=== PATIENT | female | born 1940 | race Caucasian/White ===

== ENCOUNTER 2016-06-08 10:51 | Outpatient (CLI) | payer MEDICARE ==
[~2016-06-08] VITALS: Ht 167.6 cm; Wt 88.2 kg
[~2016-06-08 10:51] MED LIST: ACET500C PO; ALBU17IN2 INH; AMLO5TAB2 PO; ASPI1TAB PO; ASPI325T PO; ATIV1TAB10 PO; ATOR1TAB18 PO; B12-1CHW PO; CALC25TA PO; CIPR-250 PO; COLA100C PO; COMBAER6 INH; DULC10SU2 PR; FERG1TAB PO; FLEEENE4 PR; HYDR-3713 PO; HYDR10TAB PO; IRBE150T12 PO; LATA5OPD OU; LEVO137T2 PO; LEVO150T7 PO; LEVO2TA PO; LIPI20TA PO; LOVE1INJ2 SC; MAG-TAB2 PO; MECL25CH PO; META28.35 PO; MILKSUS PO; PLAV75TA38 PO; PROC30TA PO; PROTPAK PO; RECL5INJ2 IV; REFR0.5D8 OU; SENN8.6C PO; SERT50TA PO; SUCR1TA PO; THERTAB30 PO; VITA100066 PO; VITA200038 PO; VITA250L PO; VITA500C10 PO; VITA500T53 PO; WARF4TAB51 PO; XALA0.002 OU; ZOFR20TA PO; antivert PO
[2016-06-08] MEDS ORDERED: ZOLEDRONIC ACID 5 MG in APPROPRIATE DILUENT 1 EA IV ONE (11:15)
[2016-06-08] MEDS ORDERED: SERT-138 PO (11:24)
[2016-06-08] MEDS ORDERED: WARF-23 PO (11:24)
== END 2016-06-08 11:50 | disposition home or self-care (01) ==
LOC: M INFU 10:51
PROVIDERS: ATTEND Family Medicine
DX: M81.0 Age-related osteoporosis without current pathological fracture (principal); Z78.0 Asymptomatic menopausal state; I69.354 Hemiplegia and hemiparesis following cerebral infarction affecting left non-dominant side; K30 Functional dyspepsia; M19.90 Unspecified osteoarthritis, unspecified site; Z87.891 Personal history of nicotine dependence; Z88.0 Allergy status to penicillin; Z88.1 Allergy status to other antibiotic agents; Z79.82 Long term (current) use of aspirin; Z79.01 Long term (current) use of anticoagulants; Z79.899 Other long term (current) drug therapy
CPT/HCPCS: 96365; J3489

== ENCOUNTER → 2016-06-17 | Outpatient (REF) | payer MEDICARE ==
[~2016-06-17] MED LIST changes: +SERT-138 PO; +WARF-23 PO
[2016-06-17 12:32] LABS: INR 2.35
[2016-06-17 13:08] LABS: ALBUMIN 3.6 GM/DL (3.2-5.2); ALBUMIN/GLOBULIN RATIO 0.9 (1.00-1.93); BILIRUBIN,TOTAL 0.5 MG/DL (0.2-1.0); CALCIUM LEVEL 9.2 MG/DL (8.8-10.2); CREATININE FOR GFR 1.04 MG/DL (0.55-1.02); FREE T4 1.17 NG/DL (0.76-1.46); GLOMERULAR FILTRATION RATE 55.1 (>39); PERCENT SATURATION 18.1 % (13.2-37.4); POTASSIUM SERUM 4.1 MEQ/L (3.5-5.1); TOTAL PROTEIN 7.6 GM/DL (6.4-8.2)
[2016-06-17 15:43] LABS: BASO # 0.1 K/mm3 (0.0-0.2); BASO % 1.1 % (0.0-1.0); EOS # 0.1 K/mm3 (0.0-0.50); EOS % 1.9 % (0.0-3.0); LARGE UNSTAINED CELL # 0.1 K/mm3 (0.0-0.4); LYMPH # 0.9 K/mm3 (1.5-4.5); LYMPH % 16.7 % (24.0-44.0); MEAN CORPUSCULAR HEMOGLOBIN 30.5 pg (27.0-33.0); MEAN CORPUSCULAR HGB CONC 31.6 g/dl (32.0-36.5); MEAN CORPUSCULAR VOLUME 96.3 fl (80.0-96.0); MONO # 0.3 K/mm3 (0.0-0.8); MONO % 6.5 % (0.0-5.0); NEUTROPHILS # 3.7 K/mm3 (1.8-7.7); NEUTROPHILS % 71.7 % (36.0-66.0); PLATELET COUNT, AUTOMATED 267 k/mm3 (150-450); RED CELL DISTRIBUTION WIDTH 13.9 % (11.5-14.5); WHITE BLOOD COUNT 5.2 K/mm3 (4.0-10.0)
== END ==
LOC: M SFHCPLAZ 09:24
PROVIDERS: ATTEND Family Medicine
DX: D50.9 Iron deficiency anemia, unspecified (principal); E55.9 Vitamin D deficiency, unspecified; E03.9 Hypothyroidism, unspecified; R73.01 Impaired fasting glucose

== ENCOUNTER → 2016-07-01 | Outpatient (REF) | payer MEDICARE ==
[~2016-07-01] MED LIST changes: -COLA100C PO; +COLA100C3 PO
[2016-07-01 18:38] LABS: INR 2.66
[2016-07-01 18:54] LABS: MEAN CORPUSCULAR HGB CONC 29.9 g/dl (32.0-36.5); RED CELL DISTRIBUTION WIDTH 14.3 % (11.5-14.5); WHITE BLOOD COUNT 5.5 K/mm3 (4.0-10.0)
== END ==
LOC: M LABDRAW1 16:55
PROVIDERS: ATTEND Physician Assistant Medical
DX: Z51.81 Encounter for therapeutic drug level monitoring (principal); Z79.01 Long term (current) use of anticoagulants; D50.9 Iron deficiency anemia, unspecified
CPT/HCPCS: 85027; 85610; 85730; G0463

== ENCOUNTER → 2016-08-18 | Outpatient (REF) | payer MEDICARE ==
[2016-08-18 12:17] LABS: BASO % 1.2 % (0.0-1.0); EOS # 0.1 K/mm3 (0.0-0.50); EOS % 3.3 % (0.0-3.0); LARGE UNSTAINED CELL # 0.1 K/mm3 (0.0-0.4); MEAN CORPUSCULAR HEMOGLOBIN 31.1 pg (27.0-33.0); MEAN CORPUSCULAR HGB CONC 32.2 g/dl (32.0-36.5); MEAN CORPUSCULAR VOLUME 96.4 fl (80.0-96.0); MONO # 0.3 K/mm3 (0.0-0.8); MONO % 7.3 % (0.0-5.0); NEUTROPHILS # 2.9 K/mm3 (1.8-7.7); NEUTROPHILS % 66.2 % (36.0-66.0); PLATELET COUNT, AUTOMATED 225 k/mm3 (150-450); RED CELL DISTRIBUTION WIDTH 14.8 % (11.5-14.5); WHITE BLOOD COUNT 4.4 K/mm3 (4.0-10.0)
[2016-08-18 12:55] LABS: FREE T4 1.25 NG/DL (0.76-1.46)
== END ==
LOC: M SFHCPLAZ 10:28
PROVIDERS: ATTEND Family Medicine
DX: R73.01 Impaired fasting glucose (principal); E03.9 Hypothyroidism, unspecified; D50.9 Iron deficiency anemia, unspecified

== ENCOUNTER → 2016-08-27 | Outpatient (REF) | payer MEDICARE ==
[2016-08-27 13:03] LABS: BASO # 0.1 K/mm3 (0.0-0.2); BASO % 1.6 % (0.0-1.0); EOS # 0.1 K/mm3 (0.0-0.50); EOS % 3.2 % (0.0-3.0); LARGE UNSTAINED CELL # 0.1 K/mm3 (0.0-0.4); LARGE UNSTAINED CELL % 1.6 % (0.0-4.0); LYMPH # 1.2 K/mm3 (1.5-4.5); LYMPH % 24.9 % (24.0-44.0); MEAN CORPUSCULAR HEMOGLOBIN 30.8 pg (27.0-33.0); MEAN CORPUSCULAR HGB CONC 31.5 g/dl (32.0-36.5); MEAN CORPUSCULAR VOLUME 97.7 fl (80.0-96.0); MONO # 0.2 K/mm3 (0.0-0.8); MONO % 5.3 % (0.0-5.0); NEUTROPHILS # 2.8 K/mm3 (1.8-7.7); NEUTROPHILS % 63.4 % (36.0-66.0); PLATELET COUNT, AUTOMATED 227 k/mm3 (150-450); RED CELL DISTRIBUTION WIDTH 14.8 % (11.5-14.5); RETIC HEMOGLOBIN CONTENT CHr 31.2 PG (24-36); RETICULOCYTE ABSOLUTE ADVIA212 48 x10(9)/L (17-77); WHITE BLOOD COUNT 4.4 K/mm3 (4.0-10.0)
[2016-08-27 13:46] LABS: PERCENT SATURATION 22.9 % (13.2-37.4)
== END ==
LOC: M SFHCPLAZ 09:27
PROVIDERS: ATTEND Family Medicine
DX: D50.9 Iron deficiency anemia, unspecified (principal); E03.9 Hypothyroidism, unspecified

== ENCOUNTER → 2016-08-29 | Outpatient (REF) | payer MEDICARE | LOC: M SFHCPLAZ 13:23 | PROVIDERS: ATTEND Family Medicine | DX: D50.9 Iron deficiency anemia, unspecified (principal) ==

== ENCOUNTER → 2016-10-28 | Outpatient (REF) | payer MEDICARE ==
[~2016-10-28] MED LIST changes: -ATOR1TAB18 PO; +ATOR80TA59 PO; -COLA100C3 PO; +COLA100C5 PO; +MECL1CHW2 PO; -MECL25CH PO; +PLAV1TAB2 PO; -PLAV75TA38 PO; -XALA0.002 OU; +XALA0.007 OU
[2016-10-28 12:00] LABS: INR 1.9
[2016-10-28 12:25] LABS: EOS # 0.1 K/mm3 (0.0-0.50); EOS % 2.1 % (0.0-3.0); FREE T4 1.27 NG/DL (0.76-1.46); LARGE UNSTAINED CELL # 0.1 K/mm3 (0.0-0.4); LARGE UNSTAINED CELL % 1.2 % (0.0-4.0); LYMPH % 19.5 % (24.0-44.0); MEAN CORPUSCULAR HEMOGLOBIN 30.5 pg (27.0-33.0); MEAN CORPUSCULAR HGB CONC 31.8 g/dl (32.0-36.5); MONO # 0.3 K/mm3 (0.0-0.8); MONO % 6.2 % (0.0-5.0); NEUTROPHILS # 3.5 K/mm3 (1.8-7.7); NEUTROPHILS % 69.9 % (36.0-66.0); PERCENT SATURATION 23.2 % (13.2-45.0); PLATELET COUNT, AUTOMATED 221 k/mm3 (150-450); RED CELL DISTRIBUTION WIDTH 14.7 % (11.5-14.5); RETIC HEMOGLOBIN CONTENT CHr 32.3 PG (24-36); RETICULOCYTE ABSOLUTE ADVIA212 40 x10(9)/L (17-77); WHITE BLOOD COUNT 4.9 K/mm3 (4.0-10.0)
[2016-10-30 00:07] LABS: H PYLORI SERUM QUANT IgG ABY <0.9 U/mL (0.0-0.8)
== END ==
LOC: M SFHCPLAZ 08:56
PROVIDERS: ATTEND Physician Assistant Medical
DX: Z51.81 Encounter for therapeutic drug level monitoring (principal); Z79.01 Long term (current) use of anticoagulants; D50.9 Iron deficiency anemia, unspecified

== ENCOUNTER → 2017-01-31 | Outpatient (REF) | payer MEDICARE ==
[2017-01-31 13:00] LABS: ALBUMIN 3.3 GM/DL (3.2-5.2); ALKALINE PHOSPHATASE 73 U/L (45-117); ALT/SGPT 16 U/L (12-78); ANION GAP 6 MEQ/L (8-16); AST/SGOT 18 U/L (7-37); BILIRUBIN,TOTAL 0.6 MG/DL (0.2-1.0); BLOOD UREA NITROGEN 16 MG/DL (7-18); CALCIUM LEVEL 8.7 MG/DL (8.8-10.2); CARBON DIOXIDE LEVEL 30 MEQ/L (21-32); CHLORIDE LEVEL 105 MEQ/L (98-107); CHOLESTEROL LEVEL 130 MG/DL (<200); CREATININE FOR GFR 0.94 MG/DL (0.55-1.02); FERRITIN 25 NG/ML (8-252); GLOMERULAR FILTRATION RATE > 60.0 (>39); GLUCOSE, FASTING 92 MG/DL (83-110); PERCENT SATURATION 24.6 % (13.2-45.0); POTASSIUM SERUM 3.9 MEQ/L (3.5-5.1); SODIUM LEVEL 141 MEQ/L (136-145); TOTAL IRON BINDING CAPACITY 248 UG/DL (250-450); TOTAL PROTEIN 7.4 GM/DL (6.4-8.2); TRIGLYCERIDES LEVEL 160 MG/DL (<150)
[2017-01-31 13:03] LABS: BASO # 0.1 10^3/uL (0.0-0.2); BASO % 1.1 % (0.0-1.0); EOS # 0.1 10^3/uL (0.0-0.50); EOS % 2.5 % (0.0-3.0); IMMATURE GRANULOCYTE % 0.2 % (0-0); LYMPH % 19.7 % (24.0-44.0); MEAN CORPUSCULAR HGB CONC 30.9 g/dl (32.0-36.5); MEAN CORPUSCULAR VOLUME 100.3 fl (80.0-96.0); MONO # 0.4 10^3/uL (0.0-0.8); MONO % 7.4 % (0.0-5.0); NEUTROPHILS # 3.7 10^3/uL (1.8-7.7); NEUTROPHILS % 69.1 % (36.0-66.0); PLATELET COUNT, AUTOMATED 268 10^3/uL (150-450); RED CELL DISTRIBUTION WIDTH 14.6 % (11.5-14.5); WHITE BLOOD COUNT 5.3 10^3/uL (4.0-10.0)
== END ==
LOC: M SFHCPLAZ 09:19
PROVIDERS: ATTEND Family Medicine
DX: D50.9 Iron deficiency anemia, unspecified (principal); E78.2 Mixed hyperlipidemia; R73.01 Impaired fasting glucose

== ENCOUNTER 2017-03-20 11:25 | Emergency (ER) | payer MEDICARE | END 2017-03-20 14:47 | disposition home or self-care (01) | LOC: M ED 11:25 | DX: M54.31 Sciatica, right side (principal); I25.2 Old myocardial infarction; I10 Essential (primary) hypertension; J44.9 Chronic obstructive pulmonary disease, unspecified; E78.00 Pure hypercholesterolemia, unspecified; D64.9 Anemia, unspecified; F32.9 Major depressive disorder, single episode, unspecified; Z87.891 Personal history of nicotine dependence; Z79.82 Long term (current) use of aspirin; Z79.02 Long term (current) use of antithrombotics/antiplatelets; Z79.899 Other long term (current) drug therapy; Z88.1 Allergy status to other antibiotic agents; Z88.0 Allergy status to penicillin | CPT/HCPCS: 99283 ==

== ENCOUNTER → 2017-04-05 | Outpatient (CLI) | payer MEDICARE ==
[2017-04-05 17:54] LABS: INR 3.67; PROTHROMBIN TIME 38.3 SECONDS (12.4-14.5)
== END ==
LOC: M SMT 10:40
DX: M51.36 Other intervertebral disc degeneration, lumbar region (principal); M51.37 Other intervertebral disc degeneration, lumbosacral region; M25.78 Osteophyte, vertebrae; M16.11 Unilateral primary osteoarthritis, right hip; Z51.81 Encounter for therapeutic drug level monitoring; Z79.01 Long term (current) use of anticoagulants
CPT/HCPCS: 85610

== ENCOUNTER → 2017-06-09 | Outpatient (REF) | payer MEDICARE ==
[2017-06-09 13:06] LABS: BASO # 0.1 10^3/uL (0.0-0.2); BASO % 1.6 % (0.0-1.0); EOS # 0.1 10^3/uL (0.0-0.50); EOS % 2.1 % (0.0-3.0); HEMATOCRIT 32.3 % (36.0-47.0); HEMOGLOBIN 9.9 g/dl (12.0-16.0); IMMATURE GRANULOCYTE % 0.3 % (0-3.0); LYMPH # 0.8 10^3/uL (1.5-4.5); MEAN CORPUSCULAR HEMOGLOBIN 31.7 pg (27.0-33.0); MEAN CORPUSCULAR HGB CONC 30.7 g/dl (32.0-36.5); MEAN CORPUSCULAR VOLUME 103.5 fl (80.0-96.0); MONO # 0.5 10^3/uL (0.0-0.8); MONO % 8.3 % (0.0-5.0); NEUTROPHILS # 4.3 10^3/uL (1.8-7.7); NEUTROPHILS % 73.7 % (36.0-66.0); PLATELET COUNT, AUTOMATED 248 10^3/uL (150-450); RED BLOOD COUNT 3.12 10^6/uL (4.00-5.40); RED CELL DISTRIBUTION WIDTH 14.7 % (11.5-14.5); WHITE BLOOD COUNT 5.8 10^3/uL (4.0-10.0)
[2017-06-09 13:20] LABS: HEMATOCRIT 32.3 % (36.0-47.0)
[2017-06-09 13:21] LABS: INR 2.41; PROTHROMBIN TIME 27.2 SECONDS (12.4-14.5)
[2017-06-09 13:22] LABS: PARTIAL THROMBOPLASTIN TIME 41.4 SECONDS (26.8-37.9)
[2017-06-09 13:57] LABS: ESTIMATED AVERAGE GLUCOSE 103 MG/DL (60-110); HEMOGLOBIN A1c 5.2 %
[2017-06-09 14:05] LABS: MAGNESIUM LEVEL 2.4 MG/DL (1.8-2.4)
[2017-06-09 14:05] LABS: FERRITIN 17 NG/ML (8-252); FREE T4 1.09 NG/DL (0.76-1.46); IRON (FE) 92 UG/DL (50-170); PERCENT SATURATION 32.4 % (13.2-45.0); TOTAL IRON BINDING CAPACITY 284 UG/DL (250-450)
[2017-06-10 11:20] LABS: PRETREATED FOLATE FOR RBCFOL 11.5 NG/ML; RBC FOLATE 747.7 NG/ML (280-791)
== END ==
LOC: M SFHCPLAZ 09:43
DX: Z51.81 Encounter for therapeutic drug level monitoring (principal); Z79.899 Other long term (current) drug therapy; D50.9 Iron deficiency anemia, unspecified; E03.9 Hypothyroidism, unspecified; I63.423 Cerebral infarction due to embolism of bilateral anterior cerebral arteries; I10 Essential (primary) hypertension
CPT/HCPCS: 83550

== ENCOUNTER → 2017-06-16 | Outpatient (REF) | payer MEDICARE ==
[2017-06-16 15:55] LABS: BASO # 0.1 10^3/uL (0.0-0.2); BASO % 1.2 % (0.0-1.0); EOS # 0.1 10^3/uL (0.0-0.50); EOS % 1.9 % (0.0-3.0); HEMATOCRIT 34.9 % (36.0-47.0); HEMOGLOBIN 10.6 g/dl (12.0-15.5); IMMATURE GRANULOCYTE % 0.4 % (0-3.0); LYMPH # 1.6 10^3/uL (1.5-4.5); LYMPH % 22.5 % (24.0-44.0); MEAN CORPUSCULAR HEMOGLOBIN 31.6 pg (27.0-33.0); MEAN CORPUSCULAR HGB CONC 30.4 g/dl (32.0-36.5); MEAN CORPUSCULAR VOLUME 104.2 fl (80.0-96.0); MONO # 0.7 10^3/uL (0.0-0.8); MONO % 9.7 % (0.0-5.0); NEUTROPHILS # 4.5 10^3/uL (1.8-7.7); NEUTROPHILS % 64.3 % (36.0-66.0); PLATELET COUNT, AUTOMATED 270 10^3/uL (150-450); RED BLOOD COUNT 3.35 10^6/uL (4.00-5.40); RED CELL DISTRIBUTION WIDTH 14.6 % (11.5-14.5); RETIC HEMOGLOBIN EQUIVALENT 35.1 pg (24-36); RETICULOCYTE # 55.6 10^9/L (17-77); RETICULOCYTE % 1.7 % (0.5-1.5); WHITE BLOOD COUNT 6.9 10^3/uL (4.0-10.0)
[2017-06-16 16:08] LABS: VITAMIN B12 LEVEL > 2000 PG/ML (247-911)
[2017-06-16 16:16] LABS: ALBUMIN 3.8 GM/DL (3.2-5.2); ALKALINE PHOSPHATASE 82 U/L (45-117); ALT/SGPT 16 U/L (12-78); ANION GAP 4 MEQ/L (8-16); AST/SGOT 19 U/L (7-37); BILIRUBIN,TOTAL 0.4 MG/DL (0.2-1.0); BLOOD UREA NITROGEN 21 MG/DL (7-18); C REACTIVE PROTEIN QUANTITATIV < 0.30 MG/DL (0.00-0.30); CALCIUM LEVEL 9.1 MG/DL (8.8-10.2); CARBON DIOXIDE LEVEL 32 MEQ/L (21-32); CHLORIDE LEVEL 105 MEQ/L (98-107); CREATININE FOR GFR 0.97 MG/DL (0.55-1.30); FREE T4 1.17 NG/DL (0.76-1.46); GLOMERULAR FILTRATION RATE 59.6 (>39); GLUCOSE, FASTING 69 MG/DL (70-100); MAGNESIUM LEVEL 2.5 MG/DL (1.8-2.4); POTASSIUM SERUM 3.8 MEQ/L (3.5-5.1); SODIUM LEVEL 141 MEQ/L (136-145); TOTAL PROTEIN 7.6 GM/DL (6.4-8.2)
[2017-06-16 16:59] LABS: ERYTHROCYTE SEDIMENTATION RATE 57 mm/hr (0-30)
[2017-06-20 00:06] LABS: CYCLIC CITRULLINATED PEPTIDE 105 units (0-19)
[2017-06-20 00:06] LABS: HAPTOGLOBIN 140 mg/dL (34-200)
[2017-06-22 10:16] LABS: HLA-B27 Negative (.)
== END ==
LOC: M SFHCPLAZ 11:28
DX: D50.9 Iron deficiency anemia, unspecified (principal); I10 Essential (primary) hypertension; E03.9 Hypothyroidism, unspecified; M06.9 Rheumatoid arthritis, unspecified
CPT/HCPCS: 83010

== ENCOUNTER → 2017-08-03 | Outpatient (REF) | payer MEDICARE ==
[2017-08-03 12:22] LABS: INR 4.97
== END ==
LOC: M SFHCPLAZ 10:17
DX: Z51.81 Encounter for therapeutic drug level monitoring (principal); Z79.01 Long term (current) use of anticoagulants
CPT/HCPCS: 85610

== ENCOUNTER → 2017-09-27 | Outpatient (REF) | payer MEDICARE ==
[2017-09-27 16:21] LABS: BASO # 0.1 10^3/uL (0.0-0.2); BASO % 1.6 % (0.0-1.0); EOS # 0.2 10^3/uL (0.0-0.50); EOS % 3.3 % (0.0-3.0); HEMATOCRIT 36.1 % (36.0-47.0); IMMATURE GRANULOCYTE % 0.4 % (0-3.0); LYMPH # 1.2 10^3/uL (1.5-4.5); LYMPH % 23.3 % (24.0-44.0); MEAN CORPUSCULAR HEMOGLOBIN 30.4 pg (27.0-33.0); MEAN CORPUSCULAR HGB CONC 30.5 g/dl (32.0-36.5); MEAN CORPUSCULAR VOLUME 99.7 fl (80.0-96.0); MONO # 0.6 10^3/uL (0.0-0.8); MONO % 10.7 % (0.0-5.0); NEUTROPHILS # 3.1 10^3/uL (1.8-7.7); NEUTROPHILS % 60.7 % (36.0-66.0); PLATELET COUNT, AUTOMATED 255 10^3/uL (150-450); RED BLOOD COUNT 3.62 10^6/uL (4.00-5.40); RED CELL DISTRIBUTION WIDTH 15.5 % (11.5-14.5); RETIC HEMOGLOBIN EQUIVALENT 34.5 pg (24-36); RETICULOCYTE # 72.4 10^9/L (17-77); WHITE BLOOD COUNT 5.1 10^3/uL (4.0-10.0)
[2017-09-27 16:32] LABS: INR 2.22; PROTHROMBIN TIME 25.1 SECONDS (12.1-14.4)
[2017-09-27 16:33] LABS: PARTIAL THROMBOPLASTIN TIME 39.1 SECONDS (25.4-37.6)
[2017-09-27 16:37] LABS: ESTIMATED AVERAGE GLUCOSE 117 MG/DL (60-110); HEMOGLOBIN A1c 5.7 %
[2017-09-27 16:54] LABS: ALBUMIN 3.7 GM/DL (3.2-5.2); ALBUMIN/GLOBULIN RATIO 1.06 (1.00-1.93); ALKALINE PHOSPHATASE 89 U/L (45-117); ALT/SGPT 13 U/L (12-78); ANION GAP 7 MEQ/L (8-16); AST/SGOT 15 U/L (7-37); BILIRUBIN,TOTAL 0.6 MG/DL (0.2-1.0); BLOOD UREA NITROGEN 15 MG/DL (7-18); C REACTIVE PROTEIN QUANTITATIV < 0.30 MG/DL (0.00-0.30); CALCIUM LEVEL 8.8 MG/DL (8.8-10.2); CARBON DIOXIDE LEVEL 27 MEQ/L (21-32); CHLORIDE LEVEL 111 MEQ/L (98-107); CREATININE FOR GFR 1.02 MG/DL (0.55-1.30); FREE T4 1.12 NG/DL (0.76-1.46); GLOMERULAR FILTRATION RATE 56.2 (>39); GLUCOSE, FASTING 99 MG/DL (70-100); MAGNESIUM LEVEL 2.3 MG/DL (1.8-2.4); POTASSIUM SERUM 4.1 MEQ/L (3.5-5.1); SODIUM LEVEL 145 MEQ/L (136-145); TOTAL PROTEIN 7.2 GM/DL (6.4-8.2)
[2017-10-06 00:20] LABS: 6-Acetylmorphine Negative (.); Codeine Negative (.); Dihydrocodeine 1.2 ng/mL (.); Hydrocodone 8.3 ng/mL (.); Hydromorphone Negative (.); Morphine Negative (.); OXYCODONE SCREEN Negative ng/mL (Cutoff:5); Opiate Confirmation Positive (.); Oxycodones Confirmation Negative (.)
== END ==
LOC: M SFHCPLAZ 09:44
DX: Z51.81 Encounter for therapeutic drug level monitoring (principal); Z79.01 Long term (current) use of anticoagulants; M06.9 Rheumatoid arthritis, unspecified; I10 Essential (primary) hypertension; Z79.899 Other long term (current) drug therapy
CPT/HCPCS: 83735

== ENCOUNTER 2017-10-10 09:41 | Outpatient (CLI) | payer MEDICARE ==
[2017-10-10] MEDS: ZOLEDRONIC ACID 5 MG in APPROPRIATE DILUENT 1 EA IV (10:00)
== END 2017-10-10 10:45 | disposition home or self-care (01) ==
LOC: M INFU 09:41
DX: M81.0 Age-related osteoporosis without current pathological fracture (principal); Z88.8 Allergy status to other drugs, medicaments and biological substances; Z88.0 Allergy status to penicillin; Z79.891 Long term (current) use of opiate analgesic; Z79.899 Other long term (current) drug therapy
CPT/HCPCS: J3489

== ENCOUNTER → 2018-02-21 | Outpatient (REF) | payer MEDICARE ==
[2018-02-21 19:12] LABS: BLOOD UREA NITROGEN 14 MG/DL (7-18)
[2018-02-21 19:12] LABS: GLOMERULAR FILTRATION RATE > 60.0 (>39)
== END ==
LOC: M LABNEURO 12:06
DX: N18.9 Chronic kidney disease, unspecified (principal)
CPT/HCPCS: 82565

== ENCOUNTER → 2018-03-02 | Outpatient (CLI) | payer MEDICARE ==
[~2018-03-02] MED LIST changes: -ACET500C PO; -ALBU17IN2 INH; -AMLO5TAB2 PO; -ASPI1TAB PO; -ASPI325T PO; -ATIV1TAB10 PO; -ATOR80TA59 PO; -B12-1CHW PO; -CALC25TA PO; -CIPR-250 PO; -COLA100C5 PO; -COMBAER6 INH; -DULC10SU2 PR; -FERG1TAB PO; -FLEEENE4 PR; -HYDR-3713 PO; -HYDR10TAB PO; -IRBE150T12 PO; +ISOVUE-370 76% 100ML VIAL (Q9967) As Ordered; -LATA5OPD OU; -LEVO137T2 PO; -LEVO150T7 PO; -LEVO2TA PO; -LIPI20TA PO; -LOVE1INJ2 SC; -MAG-TAB2 PO; -MECL1CHW2 PO; -META28.35 PO; -MILKSUS PO; -PLAV1TAB2 PO; -PROC30TA PO; -PROTPAK PO; -RECL5INJ2 IV; -REFR0.5D8 OU; -SENN8.6C PO; -SERT-138 PO; -SERT50TA PO; -SUCR1TA PO; -THERTAB30 PO; -VITA100066 PO; -VITA200038 PO; -VITA250L PO; -VITA500C10 PO; -VITA500T53 PO; -WARF-23 PO; -WARF4TAB51 PO; -XALA0.007 OU; -ZOFR20TA PO; -antivert PO
== END ==
LOC: M RAD 12:22
DX: I67.2 Cerebral atherosclerosis (principal); I73.9 Peripheral vascular disease, unspecified; I63.09 Cerebral infarction due to thrombosis of other precerebral artery
CPT/HCPCS: Q9967

== ENCOUNTER → 2018-05-12 | Outpatient (REF) | payer MEDICARE ==
[~2018-05-12] MED LIST changes: +ACET500C PO; +ALBU17IN2 INH; +AMLO5TAB6 PO; +ASPI1TAB PO; +ASPI325T PO; +ATIV1TAB10 PO; +ATOR80TA59 PO; +B12-1CHW PO; +CALC25TA PO; +CIPR-250 PO; +COLA100C5 PO; +COMBAER6 INH; +DULC10SU2 PR; +FERG1TAB PO; +FLEEENE4 PR; +HYDR-3713 PO; +HYDR10TAB PO; +IRBE150T12 PO; -ISOVUE-370 76% 100ML VIAL (Q9967) As Ordered; +LATA5OPD OU; +LEVO137T2 PO; +LEVO150T7 PO; +LEVO2TA PO; +LIPI20TA PO; +LOVE1INJ2 SC; +MAG-TAB2 PO; +MECL1CHW2 PO; +META28.35 PO; +MILK120011 PO; +PLAV1TAB2 PO; +PRED20TA PO; +PROC30TA PO; +PROTPAK PO; +RECL5INJ2 IV; +REFR0.5D8 OU; +SENN8.6C PO; +SERT-138 PO; +SERT50TA PO; +SUCR1TA PO; +TELM1TAB PO; +THERTAB30 PO; +VALI2TAB PO; +VITA100066 PO; +VITA200038 PO; +VITA250L PO; +VITA500C10 PO; +VITA500T53 PO; +WARF-23 PO; +WARF4TAB51 PO; +XALA0.007 OU; +ZOFR4TAB16 PO; +antivert PO
[2018-05-12 13:59] LABS: INR 2.32; PROTHROMBIN TIME 25.9 SECONDS (12.1-14.4)
== END ==
LOC: M LABDRAW1 12:31 → M LAB REF 12:31
PROVIDERS: ATTEND Physician Assistant Medical
DX: Z51.81 Encounter for therapeutic drug level monitoring (principal); Z79.01 Long term (current) use of anticoagulants

== ENCOUNTER → 2018-08-21 | Outpatient (CLI) | payer MEDICARE ==
[~2018-08-21] MED LIST changes: +ASPI-1 PO; -ASPI1TAB PO; -ASPI325T PO; +ASPI81TA26 PO; -FERG1TAB PO; +FERG27TA PO; +HYDR-2773 PO; -HYDR10TAB PO; +LATA0.0013 OU; -LATA5OPD OU; +MECL1CHW PO; -MECL1CHW2 PO; +SERT-141 PO; -SERT50TA PO; +VITA500T17 PO; -VITA500T53 PO
== END ==
LOC: M LAB 10:49
PROVIDERS: ATTEND Family Medicine
DX: Z51.81 Encounter for therapeutic drug level monitoring (principal); Z79.899 Other long term (current) drug therapy; R73.01 Impaired fasting glucose; D50.9 Iron deficiency anemia, unspecified; E55.9 Vitamin D deficiency, unspecified; E78.2 Mixed hyperlipidemia

== ENCOUNTER → 2018-08-21 | Outpatient (CLI) | payer MEDICARE ==
[2018-08-21 11:24] LABS: BASO # 0.1 10^3/uL (0.0-0.2); BASO % 1.2 % (0.0-1.0); EOS # 0.2 10^3/uL (0.0-0.50); EOS % 3.2 % (0.0-3.0); HEMATOCRIT 35.2 % (36.0-47.0); HEMOGLOBIN 11.2 g/dl (12.0-15.5); LYMPH # 0.9 10^3/uL (1.5-4.5); LYMPH % 15.6 % (24.0-44.0); MEAN CORPUSCULAR HEMOGLOBIN 31.5 pg (27.0-33.0); MEAN CORPUSCULAR HGB CONC 31.8 g/dl (32.0-36.5); MEAN CORPUSCULAR VOLUME 99.2 fl (80.0-96.0); MONO # 0.4 10^3/uL (0.0-0.8); MONO % 7.5 % (0.0-5.0); NEUTROPHILS # 4.1 10^3/uL (1.8-7.7); NEUTROPHILS % 72.3 % (36.0-66.0); PLATELET COUNT, AUTOMATED 218 10^3/uL (150-450); RED BLOOD COUNT 3.55 10^6/uL (4.00-5.40); WHITE BLOOD COUNT 5.7 10^3/uL (4.0-10.0)
[2018-08-21 11:37] LABS: INR 2.35; PROTHROMBIN TIME 26.2 SECONDS (12.1-14.4)
[2018-08-21 11:38] LABS: PARTIAL THROMBOPLASTIN TIME 34.3 SECONDS (25.4-37.6)
[2018-08-21 11:58] LABS: ALBUMIN 3.4 GM/DL (3.2-5.2); ALT/SGPT 15 U/L (12-78); BILIRUBIN,TOTAL 0.6 MG/DL (0.2-1.0); BLOOD UREA NITROGEN 14 MG/DL (7-18); C REACTIVE PROTEIN QUANTITATIV 0.81 MG/DL (0.00-0.30); CALCIUM LEVEL 8.5 MG/DL (8.8-10.2); CARBON DIOXIDE LEVEL 32 MEQ/L (21-32); CHLORIDE LEVEL 108 MEQ/L (98-107); CHOLESTEROL LEVEL 159 MG/DL (<200); CHOLESTEROL RISK RATIO 2.789 (<5); CPK CREATINE PHOSPHOKINASE 94 U/L (26-192); CREATININE FOR GFR 0.81 MG/DL (0.55-1.30); GLOMERULAR FILTRATION RATE > 60.0 (>39); GLUCOSE, FASTING 93 MG/DL (70-100); HDL CHOLESTEROL 57 MG/DL (>40); LDL CHOLESTEROL 83 MG/DL (<100); NON-HDL-C 102 MG/DL; POTASSIUM SERUM 3.8 MEQ/L (3.5-5.1); SODIUM LEVEL 144 MEQ/L (136-145); TOTAL PROTEIN 7.3 GM/DL (6.4-8.2); TRIGLYCERIDES LEVEL 95 MG/DL (<150)
[2018-08-21 11:59] LABS: HEMOGLOBIN A1c 5.7 %
[2018-08-21 13:03] LABS: PTH INTACT 69.5 PG/ML (18.5-88.0); TOTAL 25(OH) VITAMIN D 94.6 NG/ML (30.0-100.0)
[2018-08-21 13:54] LABS: H PYLORI QUALITATIVE IgG NEGATIVE (NEGATIVE)
== END ==
LOC: M LAB 10:33
PROVIDERS: ATTEND Physician Assistant Medical
DX: Z51.81 Encounter for therapeutic drug level monitoring (principal); Z79.899 Other long term (current) drug therapy

== ENCOUNTER → 2018-10-12 | Outpatient (REF) | payer MEDICARE | LOC: M LAB REF 12:41 | PROVIDERS: ATTEND Physician Assistant Medical | DX: L85.9 Epidermal thickening, unspecified (principal); L57.0 Actinic keratosis | CPT/HCPCS: 11102; 11103; 85610; 88305; G0463 ==

== ENCOUNTER → 2018-11-02 | Outpatient (REF) | payer MEDICARE | LOC: M SFHCPLAZ 11:51 | PROVIDERS: ATTEND Physician Assistant Medical | DX: C44.529 Squamous cell carcinoma of skin of other part of trunk (principal); Z79.01 Long term (current) use of anticoagulants | CPT/HCPCS: 11104; 85610; 88305; G0463 ==

== ENCOUNTER → 2019-01-01 | Outpatient (REF) | payer MEDICARE ==
[2019-01-01 12:18] LABS: BASO # 0.1 10^3/uL (0.0-0.2); EOS # 0.1 10^3/uL (0.0-0.5); EOS % 0.9 % (0.0-3.0); HEMATOCRIT 33.3 % (36.0-47.0); LYMPH # 0.8 10^3/uL (1.5-5.0); LYMPH % 11.5 % (24.0-44.0); MEAN CORPUSCULAR HEMOGLOBIN 30.7 pg (27.0-33.0); MEAN CORPUSCULAR VOLUME 102.1 fl (80.0-96.0); MONO # 0.7 10^3/uL (0.0-0.8); MONO % 9.6 % (0.0-5.0); NEUTROPHILS # 5.2 10^3/uL (1.5-8.5); NEUTROPHILS % 76.9 % (36.0-66.0); PLATELET COUNT, AUTOMATED 263 10^3/uL (150-450); RED BLOOD COUNT 3.26 10^6/uL (4.00-5.40); WHITE BLOOD COUNT 6.8 10^3/uL (4.0-10.0)
[2019-01-01 12:34] LABS: INR 1.93; PROTHROMBIN TIME 21.9 SECONDS (11.8-14.0)
[2019-01-01 12:46] LABS: ALBUMIN 3.4 GM/DL (3.2-5.2); BILIRUBIN,TOTAL 0.8 MG/DL (0.2-1.0); C REACTIVE PROTEIN QUANTITATIV 5.05 MG/DL (0.00-0.30); CALCIUM LEVEL 9.1 MG/DL (8.8-10.2); CHOLESTEROL RISK RATIO 2.777 (<5); CREATININE FOR GFR 1.01 MG/DL (0.55-1.30); FREE T4 1.02 NG/DL (0.76-1.46); GLOMERULAR FILTRATION RATE 56.7 (>39); MAGNESIUM LEVEL 2.1 MG/DL (1.8-2.4); POTASSIUM SERUM 3.7 MEQ/L (3.5-5.1); THYROID STIMULATING HORMONE 10.5 uIU/ML (0.358-3.740); TOTAL PROTEIN 7.1 GM/DL (6.4-8.2)
[2019-01-01 13:08] LABS: ERYTHROCYTE SEDIMENTATION RATE 73 mm/hr (0-30)
== END ==
LOC: M SFHCPLAZ 09:27
PROVIDERS: ATTEND Family Medicine
DX: Z51.81 Encounter for therapeutic drug level monitoring (principal); D50.9 Iron deficiency anemia, unspecified; I10 Essential (primary) hypertension; M06.9 Rheumatoid arthritis, unspecified; E03.9 Hypothyroidism, unspecified; E78.2 Mixed hyperlipidemia

== ENCOUNTER → 2019-02-26 | Outpatient (REF) | payer MEDICARE ==
[2019-02-26 12:52] LABS: BLOOD UREA NITROGEN 21 MG/DL (7-18); CREATININE FOR GFR 0.94 MG/DL (0.55-1.30); GLOMERULAR FILTRATION RATE > 60.0 (>39)
== END ==
LOC: M LABNEURO 09:41
PROVIDERS: ATTEND Psychiatry & Neurology Neurology
DX: I10 Essential (primary) hypertension (principal)

== ENCOUNTER → 2019-04-03 | Outpatient (CLI) | payer MEDICARE ==
--- NOTE | 2019-04-03 13:06 | REP ---
INDICATION: Cerebral infarction PROCEDURE: CT head without contrast COMPARISON STUDIES: 03/02/2018 FINDINGS: No acute bleed or acute large vessel territorial infarct. Ventricles, cisterns and sulci within normal limits. No mass effect or midline shift. No abnormal fluid collections. There is evidence of multiple prior infarcts with a dominant infarct in the right occipital lobe that was present on the comparison study. There are also multiple lacunar infarcts, bilateral basal ganglia, which overall appear stable. Paranasal sinuses and mastoid air cells are clear. IMPRESSION: No definite acute findings. Multiple prior infarcts as described. Electronically Signed by Wei Martinez MD 04/03/2019 12:58 P
== END ==
LOC: M RAD 12:35
PROVIDERS: ATTEND Physician Assistant Medical
DX: I63.423 Cerebral infarction due to embolism of bilateral anterior cerebral arteries (principal)
CPT/HCPCS: 70450; 85610; G0463

== ENCOUNTER → 2019-05-31 | Outpatient (REF) | payer MEDICARE ==
[~2019-05-31] MED LIST changes: -IRBE150T12 PO; +IRBE150T7 PO; -TELM1TAB PO; +TELM1TAB35 PO
[2019-05-31 17:49] LABS: FREE T4 1.14 NG/DL (0.76-1.46); THYROID STIMULATING HORMONE 9.01 uIU/ML (0.358-3.740)
== END ==
LOC: M SFHCPLAZ 13:05
PROVIDERS: ATTEND Family Medicine
DX: E03.9 Hypothyroidism, unspecified (principal); Z51.81 Encounter for therapeutic drug level monitoring; Z79.01 Long term (current) use of anticoagulants
CPT/HCPCS: 36415; 84439; 84443; 85610; G0463

== ENCOUNTER → 2019-07-02 | Outpatient (REF) | payer MEDICARE ==
[2019-07-02 11:20] LABS: INR 1.93; PROTHROMBIN TIME 21.9 SECONDS (11.8-14.0)
== END ==
LOC: M SFHCPLAZ 09:00
PROVIDERS: ATTEND Physician Assistant Medical
DX: I63.423 Cerebral infarction due to embolism of bilateral anterior cerebral arteries (principal)

== ENCOUNTER → 2019-07-16 | Outpatient (REF) | payer MEDICARE ==
[2019-07-16 12:26] LABS: INR 2.16; PROTHROMBIN TIME 23.8 SECONDS (11.8-14.0)
== END ==
LOC: M PLALAB 09:52
PROVIDERS: ATTEND Physician Assistant Medical
DX: I63.423 Cerebral infarction due to embolism of bilateral anterior cerebral arteries (principal)

== ENCOUNTER → 2019-08-09 | Outpatient (REF) | payer MEDICARE ==
[2019-08-09 12:27] LABS: INR 1.54; PROTHROMBIN TIME 18.2 SECONDS (11.8-14.0)
== END ==
LOC: M PLALAB 09:31
PROVIDERS: ATTEND Family Medicine
DX: Z51.81 Encounter for therapeutic drug level monitoring (principal); Z79.01 Long term (current) use of anticoagulants

== ENCOUNTER → 2019-08-22 | Outpatient (REF) | payer MEDICARE ==
[2019-08-22 11:43] LABS: INR 1.93; PROTHROMBIN TIME 21.8 SECONDS (11.8-14.0)
== END ==
LOC: M PLALAB 09:30
PROVIDERS: ATTEND Family Medicine
DX: Z51.81 Encounter for therapeutic drug level monitoring (principal)

== ENCOUNTER → 2019-09-13 | Outpatient (REF) | payer MEDICARE ==
[~2019-09-13] MED LIST changes: +AMLO1TAB24 PO; -AMLO5TAB6 PO
[2019-09-13 12:18] LABS: INR 3.28; PROTHROMBIN TIME 33.4 SECONDS (11.8-14.0)
== END ==
LOC: M SFHCPLAZ 09:34
PROVIDERS: ATTEND Physician Assistant Medical
DX: Z51.81 Encounter for therapeutic drug level monitoring (principal); Z79.01 Long term (current) use of anticoagulants

== ENCOUNTER → 2019-10-04 | Outpatient (REF) | payer MEDICARE ==
[~2019-10-04] MED LIST changes: -AMLO1TAB24 PO; +AMLO5TAB6 PO
[2019-10-04 13:16] LABS: INR 3.13; PROTHROMBIN TIME 32.1 SECONDS (11.8-14.0)
== END ==
LOC: M PLALAB 09:57
PROVIDERS: ATTEND Physician Assistant Medical
DX: Z51.81 Encounter for therapeutic drug level monitoring (principal); Z79.01 Long term (current) use of anticoagulants

== ENCOUNTER → 2019-11-30 | Outpatient (CLI) | payer MEDICARE ==
[~2019-11-30] MED LIST changes: +AMLO1TAB24 PO; -AMLO5TAB6 PO
[2019-11-30 14:50] LABS: INR 2.23; PROTHROMBIN TIME 25.2 SECONDS (11.8-14.0)
== END ==
LOC: M PLALAB 12:02
PROVIDERS: ATTEND Family Medicine
DX: I48.91 Unspecified atrial fibrillation (principal); Z51.81 Encounter for therapeutic drug level monitoring; Z79.01 Long term (current) use of anticoagulants

== ENCOUNTER → 2020-02-06 | Outpatient (REF) | payer MEDICARE ==
[2020-02-06 14:06] LABS: INR 2.35; PROTHROMBIN TIME 26.3 SECONDS (12.5-14.3)
== END ==
LOC: M SFHCPLAZ 10:11
PROVIDERS: ATTEND Physician Assistant Medical
DX: Z51.81 Encounter for therapeutic drug level monitoring (principal); Z79.01 Long term (current) use of anticoagulants

== ENCOUNTER → 2020-03-06 | Outpatient (REF) | payer MEDICARE ==
[2020-03-06 15:52] LABS: BASO # 0.1 10^3/uL (0.0-0.2); BASO % 0.9 % (0.0-1.0); EOS # 0.1 10^3/uL (0.0-0.5); EOS % 0.8 % (0.0-3.0); HEMATOCRIT 42.8 % (36.0-47.0); LYMPH # 0.8 10^3/uL (1.5-5.0); LYMPH % 8.7 % (24.0-44.0); MEAN CORPUSCULAR HEMOGLOBIN 30.4 pg (27.0-33.0); MEAN CORPUSCULAR HGB CONC 30.4 g/dl (32.0-36.5); MEAN CORPUSCULAR VOLUME 100.2 fl (80.0-96.0); MONO # 0.7 10^3/uL (0.0-0.8); MONO % 7.4 % (0.0-5.0); NEUTROPHILS # 7.3 10^3/uL (1.5-8.5); PLATELET COUNT, AUTOMATED 271 10^3/uL (150-450); RED BLOOD COUNT 4.27 10^6/uL (4.00-5.40); WHITE BLOOD COUNT 8.9 10^3/uL (4.0-10.0)
[2020-03-06 16:06] LABS: PARTIAL THROMBOPLASTIN TIME 40.9 SECONDS (24.2-38.5)
[2020-03-06 16:09] LABS: INR 2.64; PROTHROMBIN TIME 28.8 SECONDS (12.5-14.3)
[2020-03-06 16:13] LABS: ERYTHROCYTE SEDIMENTATION RATE 51 mm/hr (0-30)
[2020-03-06 16:32] LABS: ALBUMIN 3.7 GM/DL (3.2-5.2); ALT/SGPT 18 U/L (12-78); BILIRUBIN,TOTAL 0.7 MG/DL (0.2-1.0); BLOOD UREA NITROGEN 14 MG/DL (7-18); C REACTIVE PROTEIN QUANTITATIV 1.32 MG/DL (0.00-0.30); CALCIUM LEVEL 10.2 MG/DL (8.8-10.2); CARBON DIOXIDE LEVEL 33 MEQ/L (21-32); CHLORIDE LEVEL 104 MEQ/L (98-107); CHOLESTEROL LEVEL 172 MG/DL (<200); CHOLESTEROL RISK RATIO 2.567 (<5); CREATININE FOR GFR 0.94 MG/DL (0.55-1.30); FERRITIN 21 NG/ML (8-252); FREE T4 1.55 NG/DL (0.76-1.46); GLOMERULAR FILTRATION RATE > 60.0 (>39); GLUCOSE, FASTING 105 MG/DL (70-100); HDL CHOLESTEROL 67 MG/DL (>40); IRON (FE) 46 UG/DL (50-170); LDL CHOLESTEROL 83 MG/DL (<100); NON-HDL-C 105 MG/DL; PERCENT SATURATION 13.9 % (13.2-45.0); POTASSIUM SERUM 4.1 MEQ/L (3.5-5.1); SODIUM LEVEL 140 MEQ/L (136-145); TOTAL IRON BINDING CAPACITY 330 UG/DL (250-450); TOTAL PROTEIN 7.8 GM/DL (6.4-8.2); TRIGLYCERIDES LEVEL 108 MG/DL (<150)
[2020-03-06 16:40] LABS: VITAMIN B12 LEVEL 1254 PG/ML (247-911)
[2020-03-07 11:25] LABS: ALBUMIN 4.01 GM/DL (3.29-5.55); ALBUMIN % 51.4 % (55.8-66.1); ALPHA-1-GLOBULIN % 5.3 % (2.9-4.9); ALPHA-1-GLOBULINS 0.41 GM/DL (0.17-0.41); ALPHA-2-GLOBULINS 0.87 GM/DL (0.42-0.99); ALPHA-2-GLOBULINS % 11.1 % (7.1-11.8); BETA-1-GLOBULINS 0.55 GM/DL (0.28-0.60); BETA-2-GLOBULINS 0.59 GM/DL (0.19-0.55); BETA-2-GLOBULINS % 7.6 % (3.2-6.5); GAMMA GLOBULIN % 17.6 % (11.1-18.8); GAMMA GLOBULINS 1.37 GM/DL (0.65-1.58)
== END ==
LOC: M SFHCPLAZ 13:41
PROVIDERS: ATTEND Family Medicine
DX: E03.9 Hypothyroidism, unspecified (principal); M06.9 Rheumatoid arthritis, unspecified; R73.01 Impaired fasting glucose; E53.8 Deficiency of other specified B group vitamins; I63.423 Cerebral infarction due to embolism of bilateral anterior cerebral arteries; D50.9 Iron deficiency anemia, unspecified; Z51.81 Encounter for therapeutic drug level monitoring; Z23 Encounter for immunization
CPT/HCPCS: 36415; 80053; 80061; 82607; 82728; 83036; 83550; 84165; 84439; 84443; 85025; 85610; 85652; 85730; 86140; 86677; 90682; G0008; G0463

== ENCOUNTER → 2020-04-10 | Outpatient (REF) | payer MEDICARE ==
[2020-04-10 15:32] LABS: INR 1.56
== END ==
LOC: M SFHCPLAZ 10:53
PROVIDERS: ATTEND Physician Assistant Medical
DX: Z51.81 Encounter for therapeutic drug level monitoring (principal); Z79.01 Long term (current) use of anticoagulants

== ENCOUNTER → 2020-04-24 | Outpatient (REF) | payer MEDICARE ==
[2020-04-24 11:26] LABS: INR 2.06; PROTHROMBIN TIME 23.7 SECONDS (12.5-14.3)
== END ==
LOC: M SFHCPLAZ 10:26
PROVIDERS: ATTEND Physician Assistant Medical
DX: Z51.81 Encounter for therapeutic drug level monitoring (principal); Z79.01 Long term (current) use of anticoagulants

== ENCOUNTER → 2020-05-22 | Outpatient (REF) | payer MEDICARE ==
[2020-05-22 13:51] LABS: INR 2.39; PROTHROMBIN TIME 26.6 SECONDS (12.5-14.3)
== END ==
LOC: M SFHCPLAZ 10:47
PROVIDERS: ATTEND Physician Assistant Medical
DX: Z51.81 Encounter for therapeutic drug level monitoring (principal); Z79.01 Long term (current) use of anticoagulants

== ENCOUNTER → 2020-06-19 | Outpatient (REF) | payer MEDICARE ==
[2020-06-19 14:11] LABS: INR 1.84; PROTHROMBIN TIME 21.6 SECONDS (12.5-14.3)
== END ==
LOC: M PLALAB 10:23
PROVIDERS: ATTEND Family Medicine
DX: Z51.81 Encounter for therapeutic drug level monitoring (principal); Z79.01 Long term (current) use of anticoagulants

== ENCOUNTER → 2020-07-07 | Outpatient (REF) | payer MEDICARE ==
[2020-07-07 13:43] LABS: INR 1.75; PROTHROMBIN TIME 20.8 SECONDS (12.5-14.3)
== END ==
LOC: M SFHCPLAZ 09:45
PROVIDERS: ATTEND Family Medicine
DX: I63.9 Cerebral infarction, unspecified (principal); Z79.01 Long term (current) use of anticoagulants

== ENCOUNTER → 2020-07-24 | Outpatient (REF) | payer MEDICARE ==
[2020-07-24 13:37] LABS: BASO # 0.1 10^3/uL (0.0-0.2); BASO % 0.7 % (0.0-1.0); EOS # 0.1 10^3/uL (0.0-0.5); EOS % 0.7 % (0.0-3.0); HEMATOCRIT 40.9 % (36.0-47.0); HEMOGLOBIN 12.9 g/dl (12.0-15.5); LYMPH # 0.7 10^3/uL (1.5-5.0); LYMPH % 7.8 % (24.0-44.0); MEAN CORPUSCULAR HEMOGLOBIN 31.5 pg (27.0-33.0); MEAN CORPUSCULAR HGB CONC 31.5 g/dl (32.0-36.5); MONO # 0.8 10^3/uL (0.0-0.8); MONO % 8.6 % (2.0-8.0); NEUTROPHILS # 7.5 10^3/uL (1.5-8.5); NEUTROPHILS % 81.8 % (36.0-66.0); PLATELET COUNT, AUTOMATED 219 10^3/uL (150-450); RED BLOOD COUNT 4.09 10^6/uL (4.00-5.40); WHITE BLOOD COUNT 9.2 10^3/uL (4.0-10.0)
[2020-07-24 14:18] LABS: ALBUMIN 3.6 GM/DL (3.2-5.2); ALT/SGPT 16 U/L (12-78); BILIRUBIN,TOTAL 1.1 MG/DL (0.2-1.0); BLOOD UREA NITROGEN 13 MG/DL (7-18); C REACTIVE PROTEIN QUANTITATIV 0.68 MG/DL (0.00-0.30); CALCIUM LEVEL 9.5 MG/DL (8.8-10.2); CARBON DIOXIDE LEVEL 31 MEQ/L (21-32); CHLORIDE LEVEL 108 MEQ/L (98-107); CREATININE FOR GFR 0.81 MG/DL (0.55-1.30); FERRITIN 26 NG/ML (8-252); FREE T4 1.55 NG/DL (0.76-1.46); GLOMERULAR FILTRATION RATE > 60.0 (>39); GLUCOSE, FASTING 91 MG/DL (70-100); MAGNESIUM LEVEL 2.5 MG/DL (1.8-2.4); POTASSIUM SERUM 4.1 MEQ/L (3.5-5.1); PTH INTACT 43.5 PG/ML (18.5-88.0); SODIUM LEVEL 142 MEQ/L (136-145); TOTAL 25(OH) VITAMIN D 81.4 NG/ML (30.0-100.0); TOTAL PROTEIN 7.5 GM/DL (6.4-8.2)
[2020-07-24 14:52] LABS: ERYTHROCYTE SEDIMENTATION RATE 56 mm/hr (0-30)
[2020-07-24 15:07] LABS: HEMOGLOBIN A1c 6.2 %
== END ==
LOC: M SFHCPLAZ 11:49
PROVIDERS: ATTEND Physician Assistant
DX: D50.9 Iron deficiency anemia, unspecified (principal); I10 Essential (primary) hypertension; M06.9 Rheumatoid arthritis, unspecified; R73.01 Impaired fasting glucose; E03.9 Hypothyroidism, unspecified; E55.9 Vitamin D deficiency, unspecified; Z51.81 Encounter for therapeutic drug level monitoring
CPT/HCPCS: 36415; 80053; 82306; 82728; 83036; 83735; 83970; 84439; 84443; 85025; 85610; 85652; 86140; G0463

== ENCOUNTER → 2020-08-22 | Outpatient (REF) | payer MEDICARE ==
[2020-08-22 12:48] LABS: INR 1.81; PROTHROMBIN TIME 21.4 SECONDS (12.5-14.3)
== END ==
LOC: M PLALAB 10:10
PROVIDERS: ATTEND Family Medicine
DX: Z51.81 Encounter for therapeutic drug level monitoring (principal); Z79.01 Long term (current) use of anticoagulants

== ENCOUNTER → 2020-09-08 | Outpatient (REF) | payer MEDICARE ==
[2020-09-08 13:48] LABS: INR 2.04; PROTHROMBIN TIME 23.5 SECONDS (12.5-14.3)
== END ==
LOC: M PLALAB 13:16
PROVIDERS: ATTEND Family Medicine
DX: Z79.01 Long term (current) use of anticoagulants (principal); Z51.81 Encounter for therapeutic drug level monitoring

== ENCOUNTER → 2020-12-23 | Outpatient (CLI) | payer MEDICARE ==
[2020-12-23 13:36] LABS: BASO # 0.1 10^3/uL (0.0-0.2); BASO % 0.7 % (0.0-1.0); EOS # 0.1 10^3/uL (0.0-0.5); EOS % 0.9 % (0.0-3.0); HEMATOCRIT 38.6 % (36.0-47.0); HEMOGLOBIN 12.1 g/dl (12.0-15.5); LYMPH # 0.9 10^3/uL (1.5-5.0); LYMPH % 10.7 % (24.0-44.0); MEAN CORPUSCULAR HEMOGLOBIN 31.3 pg (27.0-33.0); MEAN CORPUSCULAR HGB CONC 31.3 g/dl (32.0-36.5); MEAN CORPUSCULAR VOLUME 99.7 fl (80.0-96.0); MONO # 0.7 10^3/uL (0.0-0.8); MONO % 7.9 % (2.0-8.0); NEUTROPHILS % 79.6 % (36.0-66.0); PLATELET COUNT, AUTOMATED 237 10^3/uL (150-450); RED BLOOD COUNT 3.87 10^6/uL (4.00-5.40); WHITE BLOOD COUNT 8.8 10^3/uL (4.0-10.0)
[2020-12-23 13:46] LABS: INR 2.11; PROTHROMBIN TIME 24.1 SECONDS (12.7-14.5)
[2020-12-23 13:47] LABS: PARTIAL THROMBOPLASTIN TIME 36.9 SECONDS (25.9-37.0)
[2020-12-23 15:26] LABS: HEMOGLOBIN A1c 5.9 %
[2020-12-23 17:24] LABS: ALBUMIN 3.5 GM/DL (3.2-5.2); ALT/SGPT 19 U/L (12-78); BILIRUBIN,TOTAL 1.2 MG/DL (0.2-1.0); BLOOD UREA NITROGEN 16 MG/DL (7-18); C REACTIVE PROTEIN QUANTITATIV 0.72 MG/DL (0.00-0.30); CALCIUM LEVEL 9.6 MG/DL (8.8-10.2); CARBON DIOXIDE LEVEL 29 MEQ/L (21-32); CHLORIDE LEVEL 108 MEQ/L (98-107); CHOLESTEROL LEVEL 160 MG/DL (<200); CHOLESTEROL RISK RATIO 2.461 (<5); CREATININE FOR GFR 0.93 MG/DL (0.55-1.30); FERRITIN 27 NG/ML (8-252); FREE T4 1.48 NG/DL (0.76-1.46); GLOMERULAR FILTRATION RATE > 60.0 (>39); GLUCOSE, FASTING 120 MG/DL (70-100); HDL CHOLESTEROL 65 MG/DL (>40); LDL CHOLESTEROL 70 MG/DL (<100); NON-HDL-C 95 MG/DL; SODIUM LEVEL 141 MEQ/L (136-145); TOTAL PROTEIN 7.2 GM/DL (6.4-8.2); TRIGLYCERIDES LEVEL 127 MG/DL (<150)
[2020-12-23 17:26] LABS: PTH INTACT 38.4 PG/ML (18.5-88.0); VITAMIN B12 LEVEL 956 PG/ML (247-911)
== END ==
LOC: M PLALAB 11:09
PROVIDERS: ATTEND Family Medicine
DX: R73.01 Impaired fasting glucose (principal); M06.9 Rheumatoid arthritis, unspecified; E03.9 Hypothyroidism, unspecified; E55.9 Vitamin D deficiency, unspecified; D50.9 Iron deficiency anemia, unspecified; E53.8 Deficiency of other specified B group vitamins; E78.2 Mixed hyperlipidemia

== ENCOUNTER → 2021-01-21 | Outpatient (CLI) | payer MEDICARE ==
[2021-01-21 13:55] LABS: INR 1.75; PROTHROMBIN TIME 20.9 SECONDS (12.7-14.5)
== END ==
LOC: M PLALAB 09:59
PROVIDERS: ATTEND Family Medicine
DX: R73.01 Impaired fasting glucose (principal); M06.9 Rheumatoid arthritis, unspecified; E03.9 Hypothyroidism, unspecified; E55.9 Vitamin D deficiency, unspecified; D50.9 Iron deficiency anemia, unspecified; E53.8 Deficiency of other specified B group vitamins; E78.2 Mixed hyperlipidemia

== ENCOUNTER → 2021-04-30 | Outpatient (REF) | payer MEDICARE ==
[2021-04-30 17:32] LABS: BASO # 0.1 10^3/uL (0.0-0.2); BASO % 0.7 % (0.0-1.0); EOS # 0.1 10^3/uL (0.0-0.5); EOS % 0.9 % (0.0-3.0); HEMATOCRIT 32.1 % (36.0-47.0); HEMOGLOBIN 9.9 g/dl (12.0-15.5); LYMPH # 0.7 10^3/uL (1.5-5.0); LYMPH % 7.4 % (24.0-44.0); MEAN CORPUSCULAR HEMOGLOBIN 31.6 pg (27.0-33.0); MEAN CORPUSCULAR HGB CONC 30.8 g/dl (32.0-36.5); MEAN CORPUSCULAR VOLUME 102.6 fl (80.0-96.0); MONO # 0.7 10^3/uL (0.0-0.8); MONO % 6.9 % (2.0-8.0); NEUTROPHILS # 8.3 10^3/uL (1.5-8.5); NEUTROPHILS % 83.7 % (36.0-66.0); PLATELET COUNT, AUTOMATED 315 10^3/uL (150-450); RED BLOOD COUNT 3.13 10^6/uL (4.00-5.40); WHITE BLOOD COUNT 9.9 10^3/uL (4.0-10.0)
[2021-04-30 17:36] LABS: INR 2.87; PROTHROMBIN TIME 30.4 SECONDS (12.7-14.5)
[2021-04-30 18:05] LABS: ALBUMIN 3.4 GM/DL (3.2-5.2); ALT/SGPT 19 U/L (12-78); BILIRUBIN,TOTAL 0.8 MG/DL (0.2-1.0); BLOOD UREA NITROGEN 20 MG/DL (7-18); CALCIUM LEVEL 9.1 MG/DL (8.8-10.2); CARBON DIOXIDE LEVEL 27 MEQ/L (21-32); CHLORIDE LEVEL 105 MEQ/L (98-107); FERRITIN 18 NG/ML (8-252); FREE T4 1.05 NG/DL (0.76-1.46); GLOMERULAR FILTRATION RATE 46.1 (>39); GLUCOSE, FASTING 110 MG/DL (70-100); NT-PRO BNP 82 PG/ML (<450); POTASSIUM SERUM 4.3 MEQ/L (3.5-5.1); SODIUM LEVEL 139 MEQ/L (136-145); TOTAL PROTEIN 6.8 GM/DL (6.4-8.2)
[2021-04-30 19:09] LABS: HEMOGLOBIN A1c 6.2 %
[2021-05-01 12:39] LABS: MAGNESIUM LEVEL 2.3 MG/DL (1.8-2.4)
[2021-05-04 09:15] LABS: ALBUMIN 3.63 GM/DL (3.29-5.55); ALBUMIN % 53.4 % (55.8-66.1); ALPHA-1-GLOBULIN % 5.4 % (2.9-4.9); ALPHA-1-GLOBULINS 0.37 GM/DL (0.17-0.41); ALPHA-2-GLOBULINS 0.71 GM/DL (0.42-0.99); ALPHA-2-GLOBULINS % 10.5 % (7.1-11.8); BETA-1-GLOBULINS % 7.3 % (4.7-7.2); BETA-2-GLOBULINS 0.46 GM/DL (0.19-0.55); BETA-2-GLOBULINS % 6.7 % (3.2-6.5); GAMMA GLOBULIN % 16.7 % (11.1-18.8); GAMMA GLOBULINS 1.14 GM/DL (0.65-1.58)
== END ==
LOC: M LAB REF 16:11
PROVIDERS: ATTEND Family Medicine
DX: R73.01 Impaired fasting glucose (principal); E03.9 Hypothyroidism, unspecified; D50.9 Iron deficiency anemia, unspecified; I10 Essential (primary) hypertension; I63.423 Cerebral infarction due to embolism of bilateral anterior cerebral arteries

== ENCOUNTER → 2021-05-01 | Outpatient (CLI) | payer MEDICARE ==
[2021-05-01 14:07] LABS: BASO # 0.1 10^3/uL (0.0-0.2); BASO % 0.8 % (0.0-1.0); EOS # 0.1 10^3/uL (0.0-0.5); EOS % 0.9 % (0.0-3.0); HEMATOCRIT 33.6 % (36.0-47.0); HEMOGLOBIN 10.3 g/dl (12.0-15.5); LYMPH # 0.8 10^3/uL (1.5-5.0); LYMPH % 9.4 % (24.0-44.0); MEAN CORPUSCULAR HGB CONC 30.7 g/dl (32.0-36.5); MEAN CORPUSCULAR VOLUME 101.2 fl (80.0-96.0); MONO # 0.6 10^3/uL (0.0-0.8); MONO % 7.1 % (2.0-8.0); NEUTROPHILS # 7.3 10^3/uL (1.5-8.5); NEUTROPHILS % 81.4 % (36.0-66.0); PLATELET COUNT, AUTOMATED 319 10^3/uL (150-450); RED BLOOD COUNT 3.32 10^6/uL (4.00-5.40); WHITE BLOOD COUNT 8.9 10^3/uL (4.0-10.0)
[2021-05-01 14:17] LABS: INR 2.68; PROTHROMBIN TIME 28.9 SECONDS (12.7-14.5)
[2021-05-01 14:18] LABS: PARTIAL THROMBOPLASTIN TIME 39.3 SECONDS (25.9-37.0)
== END ==
LOC: M PLALAB 12:45
PROVIDERS: ATTEND Physician Assistant
DX: D64.89 Other specified anemias (principal)

== ENCOUNTER → 2021-05-04 | Outpatient (CLI) | payer MEDICARE ==
[2021-05-04 15:14] LABS: BASO # 0.1 10^3/uL (0.0-0.2); BASO % 0.8 % (0.0-1.0); EOS # 0.1 10^3/uL (0.0-0.5); EOS % 0.7 % (0.0-3.0); HEMATOCRIT 32.9 % (36.0-47.0); LYMPH # 0.9 10^3/uL (1.5-5.0); LYMPH % 8.4 % (24.0-44.0); MEAN CORPUSCULAR HEMOGLOBIN 31.3 pg (27.0-33.0); MEAN CORPUSCULAR HGB CONC 30.4 g/dl (32.0-36.5); MEAN CORPUSCULAR VOLUME 103.1 fl (80.0-96.0); MONO # 0.7 10^3/uL (0.0-0.8); MONO % 6.8 % (2.0-8.0); NEUTROPHILS # 8.8 10^3/uL (1.5-8.5); PLATELET COUNT, AUTOMATED 323 10^3/uL (150-450); RED BLOOD COUNT 3.19 10^6/uL (4.00-5.40); WHITE BLOOD COUNT 10.6 10^3/uL (4.0-10.0)
[2021-05-04 15:35] LABS: INR 1.59; PROTHROMBIN TIME 19.4 SECONDS (12.7-14.5)
== END ==
LOC: M PLALAB 13:45
PROVIDERS: ATTEND Physician Assistant
DX: D64.89 Other specified anemias (principal); I63.423 Cerebral infarction due to embolism of bilateral anterior cerebral arteries; Z79.01 Long term (current) use of anticoagulants

== ENCOUNTER 2021-05-05 09:17 | Outpatient (CLI) | payer MEDICARE ==
[~2021-05-05] VITALS: Ht 167.6 cm; Wt 98.2 kg
[~2021-05-05 09:17] MED LIST changes: +ALBUTEROL SULFATE 2.5 MG/0.5 ML INH NEB SOLN INH PRN; +EPINEPHrine INJ 1 MG/ML 1ML AMP IM PRN; +diphenhydrAMINE 50MG/ML VIAL (J1200) IV PRN; +methylPREDNISolone 125MG 2ML VIAL IV PRN
[2021-05-05] MEDS ORDERED: NS 1,000 ML IV SCH (09:30)
[2021-05-05] MEDS ORDERED: FERRIC CARBOXYMALTOSE INJ 750 MG, VIAL MATE ADAPTER 1 EACH in NS 250 ML IV ONE (09:30)
[2021-05-05 09:42] VITALS: BP 127/64
[2021-05-05 10:57] VITALS: BP 130/70
== END 2021-05-05 13:35 | disposition home or self-care (01) ==
LOC: M INFU 09:17
PROVIDERS: ATTEND Physician Assistant
DX: D50.9 Iron deficiency anemia, unspecified (principal); Z88.0 Allergy status to penicillin; Z88.1 Allergy status to other antibiotic agents
CPT/HCPCS: 96365; J1439

== ENCOUNTER → 2021-05-18 | Outpatient (CLI) | payer MEDICARE ==
[~2021-05-18] MED LIST changes: -ALBUTEROL SULFATE 2.5 MG/0.5 ML INH NEB SOLN INH PRN; -EPINEPHrine INJ 1 MG/ML 1ML AMP IM PRN; -diphenhydrAMINE 50MG/ML VIAL (J1200) IV PRN; -methylPREDNISolone 125MG 2ML VIAL IV PRN
[2021-05-18 13:12] LABS: BASO # 0.1 10^3/uL (0.0-0.2); BASO % 0.8 % (0.0-1.0); EOS # 0.1 10^3/uL (0.0-0.5); EOS % 0.9 % (0.0-3.0); HEMATOCRIT 36.8 % (36.0-47.0); HEMOGLOBIN 11.2 g/dl (12.0-15.5); LYMPH # 0.7 10^3/uL (1.5-5.0); LYMPH % 8.4 % (24.0-44.0); MEAN CORPUSCULAR HEMOGLOBIN 31.9 pg (27.0-33.0); MEAN CORPUSCULAR HGB CONC 30.4 g/dl (32.0-36.5); MEAN CORPUSCULAR VOLUME 104.8 fl (80.0-96.0); MONO # 0.7 10^3/uL (0.0-0.8); MONO % 8.2 % (2.0-8.0); NEUTROPHILS % 81.2 % (36.0-66.0); PLATELET COUNT, AUTOMATED 217 10^3/uL (150-450); RED BLOOD COUNT 3.51 10^6/uL (4.00-5.40); WHITE BLOOD COUNT 8.6 10^3/uL (4.0-10.0)
[2021-05-18 13:41] LABS: FREE T4 1.26 NG/DL (0.76-1.46); THYROID STIMULATING HORMONE 7.03 uIU/ML (0.358-3.740)
[2021-05-18 13:44] LABS: INR 0.92; PROTHROMBIN TIME 12.8 SECONDS (12.7-14.5)
== END ==
LOC: M PLALAB 11:02
PROVIDERS: ATTEND Physician Assistant
DX: D64.89 Other specified anemias (principal); E03.9 Hypothyroidism, unspecified; D50.9 Iron deficiency anemia, unspecified; Z79.01 Long term (current) use of anticoagulants

== ENCOUNTER → 2021-06-01 | Outpatient (REF) | payer MEDICARE ==
[2021-06-01 16:46] LABS: BASO # 0.1 10^3/uL (0.0-0.2); BASO % 0.7 % (0.0-1.0); EOS # 0.1 10^3/uL (0.0-0.5); EOS % 0.6 % (0.0-3.0); HEMATOCRIT 37.9 % (36.0-47.0); HEMOGLOBIN 11.7 g/dl (12.0-15.5); LYMPH # 0.6 10^3/uL (1.5-5.0); LYMPH % 6.5 % (24.0-44.0); MEAN CORPUSCULAR HEMOGLOBIN 32.1 pg (27.0-33.0); MEAN CORPUSCULAR HGB CONC 30.9 g/dl (32.0-36.5); MEAN CORPUSCULAR VOLUME 103.8 fl (80.0-96.0); MONO # 0.5 10^3/uL (0.0-0.8); MONO % 5.1 % (2.0-8.0); NEUTROPHILS # 7.6 10^3/uL (1.5-8.5); NEUTROPHILS % 86.8 % (36.0-66.0); PLATELET COUNT, AUTOMATED 250 10^3/uL (150-450); RED BLOOD COUNT 3.65 10^6/uL (4.00-5.40); WHITE BLOOD COUNT 8.8 10^3/uL (4.0-10.0)
[2021-06-01 17:12] LABS: INR 2.36; PROTHROMBIN TIME 26.2 SECONDS (12.7-14.5)
== END ==
LOC: M SFHCPLAZ 16:08
PROVIDERS: ATTEND Physician Assistant
DX: D50.9 Iron deficiency anemia, unspecified (principal)

== ENCOUNTER → 2021-10-07 | Outpatient (REF) | payer MEDICARE ==
[2021-10-07 17:02] LABS: BASO % 0.1 % (0.0-1.0); HEMATOCRIT 43.3 % (36.0-47.0); HEMOGLOBIN 13.1 g/dl (12.0-15.5); LYMPH # 0.5 10^3/uL (1.5-5.0); LYMPH % 4.5 % (24.0-44.0); MEAN CORPUSCULAR HEMOGLOBIN 30.8 pg (27.0-33.0); MEAN CORPUSCULAR HGB CONC 30.3 g/dl (32.0-36.5); MEAN CORPUSCULAR VOLUME 101.6 fl (80.0-96.0); MONO # 0.7 10^3/uL (0.0-0.8); MONO % 5.7 % (2.0-8.0); NEUTROPHILS # 10.3 10^3/uL (1.5-8.5); NEUTROPHILS % 88.9 % (36.0-66.0); PLATELET COUNT, AUTOMATED 239 10^3/uL (150-450); RED BLOOD COUNT 4.26 10^6/uL (4.00-5.40); WHITE BLOOD COUNT 11.6 10^3/uL (4.0-10.0)
[2021-10-07 17:04] LABS: INR 3.14; PROTHROMBIN TIME 32.6 SECONDS (12.7-14.5)
[2021-10-07 17:05] LABS: PARTIAL THROMBOPLASTIN TIME 32.5 SECONDS (25.9-37.0)
[2021-10-07 17:28] LABS: ERYTHROCYTE SEDIMENTATION RATE 17 mm/hr (0-30)
[2021-10-07 17:40] LABS: ALBUMIN 3.4 GM/DL (3.2-5.2); ALT/SGPT 24 U/L (12-78); BILIRUBIN,TOTAL 0.7 MG/DL (0.2-1.0); BLOOD UREA NITROGEN 22 MG/DL (7-18); CALCIUM LEVEL 9.6 MG/DL (8.8-10.2); CARBON DIOXIDE LEVEL 27 MEQ/L (21-32); CHLORIDE LEVEL 107 MEQ/L (98-107); CREATININE FOR GFR 0.92 MG/DL (0.55-1.30); FERRITIN 76 NG/ML (8-252); FREE T4 1.06 NG/DL (0.76-1.46); GLOMERULAR FILTRATION RATE > 60.0 (>39); GLUCOSE, FASTING 155 MG/DL (70-100); POTASSIUM SERUM 4.1 MEQ/L (3.5-5.1); SODIUM LEVEL 141 MEQ/L (136-145); THYROID STIMULATING HORMONE 0.544 uIU/ML (0.358-3.740); TOTAL PROTEIN 6.8 GM/DL (6.4-8.2)
[2021-10-07 18:04] LABS: TOTAL 25(OH) VITAMIN D 61.5 NG/ML (30.0-100.0)
[2021-10-07 18:05] LABS: VITAMIN B12 LEVEL 1259 PG/ML (247-911)
[2021-10-07 22:27] LABS: HEMATOCRIT 43.3 % (36.0-47.0)
== END ==
LOC: M LAB REF 16:25
PROVIDERS: ATTEND Family Medicine
DX: D50.9 Iron deficiency anemia, unspecified (principal); M06.9 Rheumatoid arthritis, unspecified; E55.9 Vitamin D deficiency, unspecified; E03.9 Hypothyroidism, unspecified; I63.423 Cerebral infarction due to embolism of bilateral anterior cerebral arteries

== ENCOUNTER → 2021-11-04 | Outpatient (REF) | payer MEDICARE ==
[2021-11-04 17:42] LABS: INR 3.01; PROTHROMBIN TIME 31.5 SECONDS (12.7-14.5)
== END ==
LOC: M SFHCPLAZ 16:31
PROVIDERS: ATTEND Family Medicine
DX: I63.423 Cerebral infarction due to embolism of bilateral anterior cerebral arteries (principal)

== ENCOUNTER → 2021-12-15 | Outpatient (REF) | payer MEDICARE ==
[2021-12-15 17:18] LABS: INR 2.06; PROTHROMBIN TIME 23.6 SECONDS (12.7-14.5)
== END ==
LOC: M LAB REF 16:21
PROVIDERS: ATTEND Family Medicine
DX: D50.9 Iron deficiency anemia, unspecified (principal)

== ENCOUNTER → 2022-01-19 | Outpatient (CLI) | payer MEDICARE ==
[~2022-01-19] MED LIST changes: +CLOP75TA99 PO; -PLAV1TAB2 PO
[2022-01-19 15:32] LABS: INR 2.1; PROTHROMBIN TIME 23.9 SECONDS (12.5-14.5)
[2022-01-19 15:33] LABS: PARTIAL THROMBOPLASTIN TIME 32.9 SECONDS (24.8-34.2)
[2022-01-19 16:06] LABS: ERYTHROCYTE SEDIMENTATION RATE 40 mm/hr (0-30)
[2022-01-19 16:45] LABS: ALBUMIN 3.5 GM/DL (3.2-5.2); ALT/SGPT 30 U/L (12-78); BILIRUBIN,TOTAL 0.8 MG/DL (0.2-1.0); BLOOD UREA NITROGEN 14 MG/DL (7-18); CALCIUM LEVEL 9.3 MG/DL (8.8-10.2); CARBON DIOXIDE LEVEL 31 MEQ/L (21-32); CHLORIDE LEVEL 104 MEQ/L (98-107); CREATININE FOR GFR 0.93 MG/DL (0.55-1.30); FERRITIN 61 NG/ML (8-252); FREE T4 1.21 NG/DL (0.76-1.46); GLOMERULAR FILTRATION RATE > 60.0 (>32); GLUCOSE, FASTING 99 MG/DL (70-100); MAGNESIUM LEVEL 2.4 MG/DL (1.8-2.4); NT-PRO BNP 71 PG/ML (<450); POTASSIUM SERUM 4.1 MEQ/L (3.5-5.1); SODIUM LEVEL 142 MEQ/L (136-145); TOTAL PROTEIN 7.2 GM/DL (6.4-8.2)
[2022-01-19 17:01] LABS: HEMOGLOBIN A1c 6.3 %
== END ==
LOC: M PLALAB 12:47
PROVIDERS: ATTEND Family Medicine
DX: D50.9 Iron deficiency anemia, unspecified (principal); M06.9 Rheumatoid arthritis, unspecified; I10 Essential (primary) hypertension; I63.423 Cerebral infarction due to embolism of bilateral anterior cerebral arteries; E03.9 Hypothyroidism, unspecified; Z79.890 Hormone replacement therapy; Z79.899 Other long term (current) drug therapy

== ENCOUNTER → 2022-02-02 | Outpatient (REF) | payer MEDICARE ==
[2022-02-02 19:32] LABS: BASO # 0.1 10^3/uL (0.0-0.2); EOS # 0.1 10^3/uL (0.0-0.5); EOS % 1.7 % (0.0-3.0); HEMATOCRIT 42.1 % (36.0-47.0); HEMOGLOBIN 12.4 g/dl (12.0-15.5); LYMPH # 0.7 10^3/uL (1.5-5.0); LYMPH % 10.4 % (24.0-44.0); MEAN CORPUSCULAR HEMOGLOBIN 31.2 pg (27.0-33.0); MEAN CORPUSCULAR HGB CONC 29.5 g/dl (32.0-36.5); MEAN CORPUSCULAR VOLUME 105.8 fl (80.0-96.0); MONO # 0.6 10^3/uL (0.0-0.8); MONO % 7.8 % (2.0-8.0); NEUTROPHILS # 5.6 10^3/uL (1.5-8.5); NEUTROPHILS % 78.8 % (36.0-66.0); PLATELET COUNT, AUTOMATED 237 10^3/uL (150-450); RED BLOOD COUNT 3.98 10^6/uL (4.00-5.40); WHITE BLOOD COUNT 7.1 10^3/uL (4.0-10.0)
[2022-02-02 20:18] LABS: ALBUMIN 3.3 G/DL (3.2-5.2); BLOOD UREA NITROGEN 19 MG/DL (9-23); CALCIUM LEVEL 8.7 MG/DL (8.3-10.6); CARBON DIOXIDE LEVEL 28 MMOL/L (20-31); CHLORIDE LEVEL 103 MMOL/L (98-107); GLOMERULAR FILTRATION RATE > 60.0 (>32); GLUCOSE, FASTING 172 MG/DL (74-106); MAGNESIUM LEVEL 1.8 MG/DL (1.8-2.4); PHOSPHORUS LEVEL 2.7 MG/DL (2.4-5.1); POTASSIUM SERUM 3.8 MMOL/L (3.5-5.1); SODIUM LEVEL 141 MMOL/L (136-145)
== END ==
LOC: M LAB REF 17:18
PROVIDERS: ATTEND Family Medicine
DX: I10 Essential (primary) hypertension (principal)

== ENCOUNTER → 2022-03-04 | Outpatient (REF) | payer MEDICARE ==
[2022-03-04 17:43] LABS: INR 2.23; PROTHROMBIN TIME 25.1 SECONDS (12.5-14.5)
== END ==
LOC: M LAB REF 16:31
PROVIDERS: ATTEND Family Medicine
DX: Z79.01 Long term (current) use of anticoagulants (principal); I10 Essential (primary) hypertension

== ENCOUNTER → 2022-04-14 | Outpatient (REF) | payer MEDICARE ==
[2022-04-14 16:49] LABS: INR 2.05; PROTHROMBIN TIME 23.5 SECONDS (12.5-14.5)
== END ==
LOC: M LAB REF 16:20
PROVIDERS: ATTEND Family Medicine
DX: Z79.01 Long term (current) use of anticoagulants (principal)

== ENCOUNTER → 2022-05-17 | Outpatient (REF) | payer MEDICARE ==
[2022-05-17 17:05] LABS: INR 2.51; PROTHROMBIN TIME 27.5 SECONDS (12.5-14.5)
== END ==
LOC: M SFHCPLAZ 16:11
PROVIDERS: ATTEND Family Medicine
DX: Z79.01 Long term (current) use of anticoagulants (principal)

== ENCOUNTER → 2022-06-18 | Outpatient (REF) | payer MEDICARE ==
[2022-06-18 18:05] LABS: INR 1.58; PROTHROMBIN TIME 19.2 SECONDS (12.5-14.5)
== END ==
LOC: M SFHCPLAZ 16:22
PROVIDERS: ATTEND Family Medicine
DX: Z79.01 Long term (current) use of anticoagulants (principal)

== ENCOUNTER → 2022-07-29 | Outpatient (REF) | payer MEDICARE ==
[2022-07-29 17:43] LABS: INR 1.5; PROTHROMBIN TIME 18.4 SECONDS (12.5-14.5)
== END ==
LOC: M LAB REF 16:34
PROVIDERS: ATTEND Family Medicine
DX: Z51.81 Encounter for therapeutic drug level monitoring (principal); Z79.01 Long term (current) use of anticoagulants

== ENCOUNTER → 2022-08-30 | Outpatient (REF) | payer MEDICARE | LOC: M SFHCPLAZ 15:18 | PROVIDERS: ATTEND Family Medicine | DX: Z79.01 Long term (current) use of anticoagulants (principal) ==

== ENCOUNTER → 2022-10-15 | Outpatient (REF) | payer MEDICARE ==
[2022-10-15 16:58] LABS: BASO # 0.1 10^3/uL (0.0-0.2); BASO % 0.9 % (0.0-1.0); EOS # 0.1 10^3/uL (0.0-0.5); EOS % 1.7 % (0.0-3.0); HEMATOCRIT 40.9 % (36.0-47.0); HEMOGLOBIN 12.7 g/dl (12.0-15.5); LYMPH # 0.9 10^3/uL (1.5-5.0); MEAN CORPUSCULAR HEMOGLOBIN 31.7 pg (27.0-33.0); MEAN CORPUSCULAR HGB CONC 31.1 g/dl (32.0-36.5); MONO # 0.6 10^3/uL (0.0-0.8); MONO % 7.9 % (2.0-8.0); NEUTROPHILS # 6.1 10^3/uL (1.5-8.5); NEUTROPHILS % 78.2 % (36.0-66.0); PLATELET COUNT, AUTOMATED 208 10^3/uL (150-450); RED BLOOD COUNT 4.01 10^6/uL (4.00-5.40); WHITE BLOOD COUNT 7.8 10^3/uL (4.0-10.0)
[2022-10-15 17:26] LABS: INR 1.42; PROTHROMBIN TIME 17.6 SECONDS (12.5-14.5)
[2022-10-15 17:28] LABS: HEMOGLOBIN A1c 6.4 % (4.0-6.0)
[2022-10-15 17:41] LABS: ALBUMIN 3.2 G/DL (3.2-5.2); ALKALINE PHOSPHATASE 68 U/L (46-116); ALT/SGPT 13 U/L (7.0-40); AST/SGOT 12 U/L (<34); BILIRUBIN,TOTAL 0.9 MG/DL (0.3-1.2); BLOOD UREA NITROGEN 17 MG/DL (9-23); CARBON DIOXIDE LEVEL 30 MMOL/L (20-31); CHLORIDE LEVEL 106 MMOL/L (98-107); CREATININE FOR GFR 0.91 MG/DL (0.55-1.30); GLOMERULAR FILTRATION RATE > 60.0 (>32); GLUCOSE, FASTING 98 MG/DL (74-106); POTASSIUM SERUM 4.1 MMOL/L (3.5-5.1); SODIUM LEVEL 143 MMOL/L (136-145); TOTAL PROTEIN 6.6 G/DL (5.7-8.2)
[2022-10-15 17:44] LABS: THYROID STIMULATING HORMONE 6.582 uIU/ML (0.55-4.78)
[2022-10-15 17:45] LABS: FREE T4 1.19 NG/DL (0.89-1.76); VITAMIN B12 LEVEL 785 PG/ML (211-911)
[2022-10-15 17:47] LABS: THYROID PEROXIDASE ANTIBODY < 28.0 U/ML (<60.0)
== END ==
LOC: M LAB REF 16:28
PROVIDERS: ATTEND Family Medicine
DX: I50.32 Chronic diastolic (congestive) heart failure (principal); D50.9 Iron deficiency anemia, unspecified; R73.01 Impaired fasting glucose; R78.2 Finding of cocaine in blood; I63.423 Cerebral infarction due to embolism of bilateral anterior cerebral arteries; Z79.01 Long term (current) use of anticoagulants

== ENCOUNTER → 2022-11-04 | Outpatient (REF) | payer MEDICARE ==
[2022-11-04 17:50] LABS: INR 2.01; PROTHROMBIN TIME 22.3 SECONDS (12.5-14.5)
== END ==
LOC: M SFHCPLAZ 16:41
PROVIDERS: ATTEND Family Medicine
DX: Z79.01 Long term (current) use of anticoagulants (principal)

== ENCOUNTER → 2022-11-26 | Outpatient (REF) | payer MEDICARE ==
[2022-11-26 17:07] LABS: INR 1.89; PROTHROMBIN TIME 21.2 SECONDS (12.5-14.5)
== END ==
LOC: M LAB REF 16:22
PROVIDERS: ATTEND Family Medicine
DX: Z79.01 Long term (current) use of anticoagulants (principal)

== ENCOUNTER → 2023-01-20 | Outpatient (REF) | payer MEDICARE ==
[2023-01-20 16:51] LABS: BASO # 0.1 10^3/uL (0.0-0.2); BASO % 0.8 % (0.0-1.0); EOS # 0.1 10^3/uL (0.0-0.5); EOS % 1.3 % (0.0-3.0); HEMATOCRIT 41.4 % (36.0-47.0); HEMOGLOBIN 12.8 g/dl (12.0-15.5); LYMPH # 0.6 10^3/uL (1.5-5.0); LYMPH % 8.2 % (24.0-44.0); MEAN CORPUSCULAR HEMOGLOBIN 31.6 pg (27.0-33.0); MEAN CORPUSCULAR HGB CONC 30.9 g/dl (32.0-36.5); MEAN CORPUSCULAR VOLUME 102.2 fl (80.0-96.0); MONO # 0.5 10^3/uL (0.0-0.8); MONO % 5.8 % (2.0-8.0); NEUTROPHILS # 6.5 10^3/uL (1.5-8.5); NEUTROPHILS % 83.6 % (36.0-66.0); PLATELET COUNT, AUTOMATED 197 10^3/uL (150-450); RED BLOOD COUNT 4.05 10^6/uL (4.00-5.40); WHITE BLOOD COUNT 7.7 10^3/uL (4.0-10.0)
[2023-01-20 17:17] LABS: ALBUMIN 3.2 G/DL (3.2-5.2); ALKALINE PHOSPHATASE 65 U/L (46-116); ALT/SGPT 15 U/L (7.0-40); AST/SGOT 17 U/L (<34); BILIRUBIN,TOTAL 0.9 MG/DL (0.3-1.2); BLOOD UREA NITROGEN 23 MG/DL (9-23); CALCIUM LEVEL 8.9 MG/DL (8.3-10.6); CARBON DIOXIDE LEVEL 29 MMOL/L (20-31); CHLORIDE LEVEL 106 MMOL/L (98-107); CHOLESTEROL LEVEL 161 MG/DL (<200); CHOLESTEROL RISK RATIO 2.88 (<5); GLOMERULAR FILTRATION RATE > 60.0 (>32); GLUCOSE, FASTING 128 MG/DL (74-106); HDL CHOLESTEROL 55.8 MG/DL (>40); LDL CHOLESTEROL 82.2 MG/DL (<100); NON-HDL-C 105.2 MG/DL; POTASSIUM SERUM 3.6 MMOL/L (3.5-5.1); SODIUM LEVEL 143 MMOL/L (136-145); TOTAL PROTEIN 6.7 G/DL (5.7-8.2); TRIGLYCERIDES LEVEL 115 MG/DL (<150)
[2023-01-20 17:20] LABS: HEMOGLOBIN A1c 6.1 % (4.0-6.0)
[2023-01-20 17:21] LABS: INR 2.5; PROTHROMBIN TIME 26.1 SECONDS (12.5-14.5)
== END ==
LOC: M LAB REF 16:09
PROVIDERS: ATTEND Family Medicine
DX: I50.32 Chronic diastolic (congestive) heart failure (principal); Z79.01 Long term (current) use of anticoagulants; D50.9 Iron deficiency anemia, unspecified; R73.01 Impaired fasting glucose

== ENCOUNTER 2023-03-04 18:38 | Emergency (ER) | payer MEDICARE ==
[~2023-03-04] VITALS: Ht 167.6 cm; Wt 100.0 kg
[2023-03-04] MEDS ORDERED: MORPHINE 4 MG/ML 1ML VIAL IV ONE (21:15)
[2023-03-04] MEDS ORDERED: ONDANSETRON 4MG 2ML VIAL IV ONE (21:15)
[2023-03-04 21:45] LABS: BASO # 0.1 10^3/uL (0.0-0.2); BASO % 0.5 % (0.0-1.0); EOS # 0.1 10^3/uL (0.0-0.5); EOS % 0.7 % (0.0-3.0); HEMATOCRIT 40.1 % (36.0-47.0); HEMOGLOBIN 13.2 g/dl (12.0-15.5); LYMPH % 10.4 % (24.0-44.0); MEAN CORPUSCULAR HEMOGLOBIN 32.4 pg (27.0-33.0); MEAN CORPUSCULAR HGB CONC 32.9 g/dl (32.0-36.5); MEAN CORPUSCULAR VOLUME 98.3 fl (80.0-96.0); MONO # 0.7 10^3/uL (0.0-0.8); NEUTROPHILS % 81.2 % (36.0-66.0); PLATELET COUNT, AUTOMATED 231 10^3/uL (150-450); RED BLOOD COUNT 4.08 10^6/uL (4.00-5.40); WHITE BLOOD COUNT 9.9 10^3/uL (4.0-10.0)
[2023-03-04] MEDS ORDERED: ISOVUE-370 76% 100ML VIAL As Ordered ONE (21:46)
[2023-03-04 21:52] LABS: ERYTHROCYTE SEDIMENTATION RATE 86 mm/hr (0-30)
[2023-03-04] MEDS ORDERED: MORPHINE 2 MG/ML 1ML VIAL IV ONE (22:25)
[2023-03-04 22:32] LABS: RSV AMPLIFICATION NEGATIVE (NEGATIVE)
[2023-03-04] MEDS ORDERED: DEBR6.5S4 OTIC (23:36)
[2023-03-04] MEDS ORDERED: CIPRODEX OTIC SUSP 7.5ML AD STA (23:36)
[2023-03-04] MEDS ORDERED: CIPR7.5D2 AD (23:36)
[2023-03-05 00:12] VITALS: TEMP 98
[2023-03-05 00:30] VITALS: BP 132/77; O2SAT 97
== END 2023-03-05 00:32 | disposition home or self-care (01) ==
LOC: M ED 18:38
DX: H60.91 Unspecified otitis externa, right ear (principal); R68.84 Jaw pain; H61.23 Impacted cerumen, bilateral; I10 Essential (primary) hypertension; Z88.0 Allergy status to penicillin; Z88.1 Allergy status to other antibiotic agents; Z79.52 Long term (current) use of systemic steroids; Z79.02 Long term (current) use of antithrombotics/antiplatelets; Z79.01 Long term (current) use of anticoagulants; Z79.899 Other long term (current) drug therapy
CPT/HCPCS: 70450; 70487; 80047; 83605; 85025; 85652; 86140; 87040; 87631; 96374; 96375; 99284; J2405; Q9967

== ENCOUNTER → 2023-04-28 | Outpatient (REF) | payer MEDICARE ==
[~2023-04-28] MED LIST changes: +CIPR7.5D2 AD; +DEBR6.5S4 OTIC; +IRBE150T27 PO; -IRBE150T7 PO
[2023-04-28 16:41] LABS: INR 1.68; PROTHROMBIN TIME 19.2 SECONDS (12.5-14.5)
== END ==
LOC: M LAB REF 16:15
PROVIDERS: ATTEND Family Medicine
DX: Z79.01 Long term (current) use of anticoagulants (principal)

== ENCOUNTER → 2023-06-23 | Outpatient (REF) | payer MEDICARE | LOC: M SFHCPLAZ 19:06 | PROVIDERS: ATTEND Family Medicine | DX: Z79.01 Long term (current) use of anticoagulants (principal); R73.01 Impaired fasting glucose; D50.9 Iron deficiency anemia, unspecified; M06.9 Rheumatoid arthritis, unspecified; E55.9 Vitamin D deficiency, unspecified; E03.9 Hypothyroidism, unspecified ==

== ENCOUNTER → 2023-06-24 | Outpatient (REF) | payer MEDICARE | LOC: M SFHCPLAZ 08:33 | PROVIDERS: ATTEND Family Medicine | DX: Z79.01 Long term (current) use of anticoagulants (principal); R73.01 Impaired fasting glucose; D50.9 Iron deficiency anemia, unspecified; M06.9 Rheumatoid arthritis, unspecified; E55.9 Vitamin D deficiency, unspecified; E03.9 Hypothyroidism, unspecified ==

== ENCOUNTER → 2023-07-11 | Outpatient (REF) | payer MEDICARE ==
[2023-07-11 16:54] LABS: ERYTHROCYTE SEDIMENTATION RATE 40 mm/hr (0-30)
[2023-07-11 16:56] LABS: ALBUMIN 2.8 G/DL (3.2-5.2); ALKALINE PHOSPHATASE 75 U/L (46-116); ALT/SGPT 16 U/L (7.0-40); AST/SGOT 15 U/L (<34); BILIRUBIN,TOTAL 0.7 MG/DL (0.3-1.2); BLOOD UREA NITROGEN 21 MG/DL (9-23); CALCIUM LEVEL 8.7 MG/DL (8.3-10.6); CARBON DIOXIDE LEVEL 31 MMOL/L (20-31); CHLORIDE LEVEL 105 MMOL/L (98-107); CREATININE FOR GFR 0.88 MG/DL (0.55-1.30); GLOMERULAR FILTRATION RATE > 60.0 (>32); GLUCOSE, FASTING 133 MG/DL (74-106); POTASSIUM SERUM 3.6 MMOL/L (3.5-5.1); PTH INTACT 61.1 PG/ML (18.5-88.0); SODIUM LEVEL 141 MMOL/L (136-145)
[2023-07-11 16:57] LABS: FERRITIN 35.1 NG/ML (7.3-270.7)
[2023-07-11 16:58] LABS: FREE T4 1.13 NG/DL (0.89-1.76); THYROID STIMULATING HORMONE 7.664 uIU/ML (0.55-4.78); TOTAL 25(OH) VITAMIN D 65.8 NG/ML (20.0-100.0)
[2023-07-11 17:04] LABS: INR 3.55; PROTHROMBIN TIME 34.2 SECONDS (12.5-14.5)
[2023-07-11 17:24] LABS: BASO % 0.7 % (0.0-1.0); EOS # 0.1 10^3/uL (0.0-0.5); EOS % 2.4 % (0.0-3.0); HEMATOCRIT 37.9 % (36.0-47.0); HEMOGLOBIN 11.7 g/dl (12.0-15.5); LYMPH % 18.9 % (24.0-44.0); MEAN CORPUSCULAR HEMOGLOBIN 31.7 pg (27.0-33.0); MEAN CORPUSCULAR HGB CONC 30.9 g/dl (32.0-36.5); MEAN CORPUSCULAR VOLUME 102.7 fl (80.0-96.0); MONO # 0.5 10^3/uL (0.0-0.8); MONO % 9.6 % (2.0-8.0); NEUTROPHILS # 3.8 10^3/uL (1.5-8.5); NEUTROPHILS % 68.2 % (36.0-66.0); PLATELET COUNT, AUTOMATED 229 10^3/uL (150-450); RED BLOOD COUNT 3.69 10^6/uL (4.00-5.40); WHITE BLOOD COUNT 5.5 10^3/uL (4.0-10.0)
== END ==
LOC: M LAB REF 16:09
PROVIDERS: ATTEND Family Medicine
DX: Z79.01 Long term (current) use of anticoagulants (principal); M06.9 Rheumatoid arthritis, unspecified; D50.9 Iron deficiency anemia, unspecified; E55.9 Vitamin D deficiency, unspecified; R73.01 Impaired fasting glucose; E78.2 Mixed hyperlipidemia

== ENCOUNTER → 2023-07-15 | Outpatient (REF) | payer MEDICARE | LOC: M SFHCPLAZ 12:00 | PROVIDERS: ATTEND Family Medicine | DX: Z79.01 Long term (current) use of anticoagulants (principal); R73.01 Impaired fasting glucose; D50.9 Iron deficiency anemia, unspecified; M06.9 Rheumatoid arthritis, unspecified; E55.9 Vitamin D deficiency, unspecified; E03.9 Hypothyroidism, unspecified ==

== ENCOUNTER → 2023-08-02 | Outpatient (REF) | payer MEDICARE ==
[2023-08-02 17:13] LABS: INR 1.94; PROTHROMBIN TIME 21.5 SECONDS (12.5-14.5)
== END ==
LOC: M SFHCPLAZ 16:29
PROVIDERS: ATTEND Family Medicine
DX: Z79.01 Long term (current) use of anticoagulants (principal)

== ENCOUNTER → 2023-08-16 | Outpatient (CLI) | payer MEDICARE | LOC: M RAD 13:57 | PROVIDERS: ATTEND Student in an Organized Health Care Education/Training Program | DX: M79.661 Pain in right lower leg (principal) ==

== ENCOUNTER → 2023-08-17 | Outpatient (CLI) | payer MEDICARE ==
[2023-08-17 08:39] LABS: BASO # 0.1 10^3/uL (0.0-0.2); BASO % 1.3 % (0.0-1.0); EOS # 0.1 10^3/uL (0.0-0.5); EOS % 1.3 % (0.0-3.0); HEMATOCRIT 37.9 % (36.0-47.0); LYMPH # 0.9 10^3/uL (1.5-5.0); LYMPH % 19.7 % (24.0-44.0); MEAN CORPUSCULAR HEMOGLOBIN 31.6 pg (27.0-33.0); MEAN CORPUSCULAR HGB CONC 31.7 g/dl (32.0-36.5); MEAN CORPUSCULAR VOLUME 99.7 fl (80.0-96.0); MONO # 0.4 10^3/uL (0.0-0.8); MONO % 8.6 % (2.0-8.0); NEUTROPHILS # 3.1 10^3/uL (1.5-8.5); NEUTROPHILS % 68.9 % (36.0-66.0); PLATELET COUNT, AUTOMATED 236 10^3/uL (150-450); WHITE BLOOD COUNT 4.5 10^3/uL (4.0-10.0)
[2023-08-17 09:03] LABS: ALBUMIN 2.9 G/DL (3.2-5.2); ALKALINE PHOSPHATASE 72 U/L (46-116); ALT/SGPT 13 U/L (7.0-40); AST/SGOT 11 U/L (<34); BILIRUBIN,TOTAL 0.7 MG/DL (0.3-1.2); BLOOD UREA NITROGEN 14 MG/DL (9-23); CALCIUM LEVEL 8.7 MG/DL (8.3-10.6); CARBON DIOXIDE LEVEL 30 MMOL/L (20-31); CHLORIDE LEVEL 109 MMOL/L (98-107); CREATININE FOR GFR 0.82 MG/DL (0.55-1.30); GLOMERULAR FILTRATION RATE > 60.0 (>32); GLUCOSE, FASTING 121 MG/DL (74-106); POTASSIUM SERUM 4.2 MMOL/L (3.5-5.1); SODIUM LEVEL 144 MMOL/L (136-145); TOTAL PROTEIN 6.5 G/DL (5.7-8.2)
== END ==
LOC: M RAD 07:21
PROVIDERS: ATTEND Physician Assistant Medical
DX: R60.0 Localized edema (principal); I71.40 Abdominal aortic aneurysm, without rupture, unspecified; I50.32 Chronic diastolic (congestive) heart failure

== ENCOUNTER → 2023-09-12 | Outpatient (REF) | payer MEDICARE ==
[2023-09-12 16:40] LABS: INR 2.66; PROTHROMBIN TIME 27.4 SECONDS (12.5-14.5)
== END ==
LOC: M LAB REF 16:16
PROVIDERS: ATTEND Family Medicine
DX: Z79.01 Long term (current) use of anticoagulants (principal)

== ENCOUNTER → 2023-10-07 | Outpatient (REF) | payer MEDICARE ==
[2023-10-07 17:16] LABS: INR 2.44; PROTHROMBIN TIME 25.6 SECONDS (12.5-14.5)
== END ==
LOC: M LAB REF 16:02
PROVIDERS: ATTEND Family Medicine
DX: Z79.01 Long term (current) use of anticoagulants (principal)

== ENCOUNTER → 2023-11-08 | Outpatient (REF) | payer MEDICARE ==
[2023-11-08 16:19] LABS: INR 2.88; PROTHROMBIN TIME 29.1 SECONDS (12.5-14.5)
== END ==
LOC: M SFHCPLAZ 16:02
PROVIDERS: ATTEND Family Medicine
DX: Z79.01 Long term (current) use of anticoagulants (principal)

== ENCOUNTER → 2024-01-06 | Outpatient (REF) | payer MEDICARE ==
[2024-01-06 16:40] LABS: INR 3.42; PROTHROMBIN TIME 33.2 SECONDS (12.5-14.5)
== END ==
LOC: M SFHCPLAZ 16:10
PROVIDERS: ATTEND Family Medicine
DX: Z79.01 Long term (current) use of anticoagulants (principal)

== ENCOUNTER → 2024-01-23 | Outpatient (REF) | payer MEDICARE ==
[2024-01-23 17:14] LABS: INR 2.49; PROTHROMBIN TIME 26.9 SECONDS (12.5-14.5)
== END ==
LOC: M LAB REF 16:33
PROVIDERS: ATTEND Family Medicine
DX: Z51.81 Encounter for therapeutic drug level monitoring (principal); Z79.01 Long term (current) use of anticoagulants

== ENCOUNTER → 2024-03-21 | Outpatient (REF) | payer MEDICARE ==
[2024-03-21 13:57] LABS: BASO # 0.1 10^3/uL (0.0-0.2); EOS # 0.1 10^3/uL (0.0-0.5); EOS % 1.9 % (0.0-3.0); HEMATOCRIT 41.7 % (36.0-47.0); LYMPH # 0.9 10^3/uL (1.5-5.0); LYMPH % 17.8 % (24.0-44.0); MEAN CORPUSCULAR HEMOGLOBIN 31.6 pg (27.0-33.0); MEAN CORPUSCULAR HGB CONC 31.2 g/dl (32.0-36.5); MEAN CORPUSCULAR VOLUME 101.5 fl (80.0-96.0); MONO # 0.5 10^3/uL (0.0-0.8); MONO % 10.3 % (2.0-8.0); NEUTROPHILS # 3.3 10^3/uL (1.5-8.5); NEUTROPHILS % 68.8 % (36.0-66.0); PLATELET COUNT, AUTOMATED 174 10^3/uL (150-450); RED BLOOD COUNT 4.11 10^6/uL (4.00-5.40); WHITE BLOOD COUNT 4.8 10^3/uL (4.0-10.0)
[2024-03-21 14:07] LABS: ERYTHROCYTE SEDIMENTATION RATE 24 mm/hr (0-30)
[2024-03-21 14:09] LABS: INR 2.47; PROTHROMBIN TIME 26.8 SECONDS (12.5-14.5)
[2024-03-21 14:24] LABS: C REACTIVE PROTEIN QUANTITATIV < 0.50 MG/DL (<1.0)
[2024-03-21 14:25] LABS: ALBUMIN 3.3 G/DL (3.2-5.2); ALKALINE PHOSPHATASE 154 U/L (35-104); ALT/SGPT 14 U/L (7.0-40); AST/SGOT 15 U/L (<34); BLOOD UREA NITROGEN 27 MG/DL (9-23); CALCIUM LEVEL 9.1 MG/DL (8.3-10.6); CARBON DIOXIDE LEVEL 30 MMOL/L (20-31); CHLORIDE LEVEL 110 MMOL/L (98-107); CHOLESTEROL LEVEL 191 MG/DL (<200); CHOLESTEROL RISK RATIO 4.36 (<5); CREATININE FOR GFR 0.75 MG/DL (0.55-1.30); GLOMERULAR FILTRATION RATE > 60.0 (>32); GLUCOSE, FASTING 117 MG/DL (74-106); HDL CHOLESTEROL 43.8 MG/DL (>40); LDL CHOLESTEROL 118.2 MG/DL (<100); NON-HDL-C 147.2 MG/DL; POTASSIUM SERUM 3.2 MMOL/L (3.5-5.1); SODIUM LEVEL 148 MMOL/L (136-145); THYROID STIMULATING HORMONE 9.622 uIU/ML (0.55-4.78); TOTAL PROTEIN 6.1 G/DL (5.7-8.2); TRIGLYCERIDES LEVEL 145 MG/DL (<150)
[2024-03-21 14:26] LABS: FERRITIN 101.5 NG/ML (7.3-270.7); PTH INTACT 36.8 PG/ML (18.5-88.0); TOTAL 25(OH) VITAMIN D 75.8 NG/ML (20.0-100.0); VITAMIN B12 LEVEL 1463 PG/ML (211-911)
[2024-03-21 14:27] LABS: FREE T4 1.58 NG/DL (0.89-1.76)
[2024-03-21 14:54] LABS: HEMOGLOBIN A1c 6.6 % (4.0-6.0)
== END ==
LOC: M LAB REF 13:16
PROVIDERS: ATTEND Family Medicine
DX: D50.9 Iron deficiency anemia, unspecified (principal); R73.01 Impaired fasting glucose; M06.9 Rheumatoid arthritis, unspecified; E03.9 Hypothyroidism, unspecified; E55.9 Vitamin D deficiency, unspecified; Z79.01 Long term (current) use of anticoagulants; I71.43 Infrarenal abdominal aortic aneurysm, without rupture; E78.2 Mixed hyperlipidemia

== ENCOUNTER → 2024-03-23 | Outpatient (CLI) | payer MEDICARE ==
[~2024-03-23] MED LIST changes: +ISOVUE-370 76% 100ML VIAL ONE
== END ==
LOC: M PLAIMG 12:58
PROVIDERS: ATTEND Family Medicine
DX: I71.43 Infrarenal abdominal aortic aneurysm, without rupture (principal); M47.816 Spondylosis without myelopathy or radiculopathy, lumbar region
CPT/HCPCS: 72128; 72131; 74175; Q9967

== ENCOUNTER → 2024-06-11 | Outpatient (REF) | payer MEDICARE ==
[~2024-06-11] MED LIST changes: -ISOVUE-370 76% 100ML VIAL ONE
[2024-06-11 15:07] LABS: INR 2.35; PROTHROMBIN TIME 25.8 SECONDS (12.5-14.5)
[2024-06-11 15:16] LABS: BASO # 0.1 10^3/uL (0.0-0.2); EOS # 0.2 10^3/uL (0.0-0.5); EOS % 2.9 % (0.0-3.0); HEMATOCRIT 35.2 % (36.0-47.0); LYMPH # 0.9 10^3/uL (1.5-5.0); LYMPH % 16.1 % (24.0-44.0); MEAN CORPUSCULAR HEMOGLOBIN 32.6 pg (27.0-33.0); MEAN CORPUSCULAR HGB CONC 31.3 g/dl (32.0-36.5); MEAN CORPUSCULAR VOLUME 104.5 fl (80.0-96.0); MONO # 0.6 10^3/uL (0.0-0.8); MONO % 10.4 % (2.0-8.0); NEUTROPHILS % 69.3 % (36.0-66.0); PLATELET COUNT, AUTOMATED 188 10^3/uL (150-450); RED BLOOD COUNT 3.37 10^6/uL (4.00-5.40); WHITE BLOOD COUNT 5.8 10^3/uL (4.0-10.0)
[2024-06-11 15:24] LABS: ALBUMIN 2.8 G/DL (3.2-5.2); ALKALINE PHOSPHATASE 78 U/L (35-104); ALT/SGPT 20 U/L (7.0-40); AST/SGOT 25 U/L (<34); BILIRUBIN,TOTAL 0.8 MG/DL (0.3-1.2); BLOOD UREA NITROGEN 8 MG/DL (9-23); C REACTIVE PROTEIN QUANTITATIV 0.52 MG/DL (<1.0); CALCIUM LEVEL 8.5 MG/DL (8.3-10.6); CARBON DIOXIDE LEVEL 29 MMOL/L (20-31); CHLORIDE LEVEL 107 MMOL/L (98-107); CHOLESTEROL LEVEL 123 MG/DL (<200); CHOLESTEROL RISK RATIO 3.21 (<5); CREATININE FOR GFR 0.84 MG/DL (0.55-1.30); GLOMERULAR FILTRATION RATE > 60.0 (>32); GLUCOSE, FASTING 102 MG/DL (74-106); HDL CHOLESTEROL 38.2 MG/DL (>40); NON-HDL-C 84.8 MG/DL; POTASSIUM SERUM 3.3 MMOL/L (3.5-5.1); SODIUM LEVEL 144 MMOL/L (136-145); TOTAL PROTEIN 6.1 G/DL (5.7-8.2); TRIGLYCERIDES LEVEL 99 MG/DL (<150)
[2024-06-11 15:25] LABS: FERRITIN 128.1 NG/ML (7.3-270.7); FREE T4 1.51 NG/DL (0.89-1.76)
[2024-06-11 15:26] LABS: PTH INTACT 66.8 PG/ML (18.5-88.0); THYROID STIMULATING HORMONE 3.325 uIU/ML (0.55-4.78); TOTAL 25(OH) VITAMIN D 76.3 NG/ML (20.0-100.0); VITAMIN B12 LEVEL 1094 PG/ML (211-911)
[2024-06-11 15:28] LABS: ERYTHROCYTE SEDIMENTATION RATE 35 mm/hr (0-30)
[2024-06-11 16:22] LABS: HEMOGLOBIN A1c 6.1 % (4.0-6.0)
== END ==
LOC: M LAB REF 14:50
PROVIDERS: ATTEND Family Medicine
DX: M06.9 Rheumatoid arthritis, unspecified (principal); D50.9 Iron deficiency anemia, unspecified; Z79.01 Long term (current) use of anticoagulants; E03.9 Hypothyroidism, unspecified; R73.01 Impaired fasting glucose; E78.2 Mixed hyperlipidemia; E55.9 Vitamin D deficiency, unspecified; E53.8 Deficiency of other specified B group vitamins

== ENCOUNTER → 2024-07-20 | Outpatient (REF) | payer MEDICARE ==
[2024-07-20 17:18] LABS: INR 1.12; PROTHROMBIN TIME 14.7 SECONDS (12.5-14.5)
== END ==
LOC: M LAB REF 16:57
PROVIDERS: ATTEND Family Medicine
DX: Z79.01 Long term (current) use of anticoagulants (principal)

== ENCOUNTER → 2024-07-24 | Outpatient (REF) | payer MEDICARE ==
[2024-07-24 17:08] LABS: INR 1.52; PROTHROMBIN TIME 18.5 SECONDS (12.5-14.5)
== END ==
LOC: M SFHCPLAZ 16:38
PROVIDERS: ATTEND Family Medicine
DX: Z79.01 Long term (current) use of anticoagulants (principal)

== ENCOUNTER → 2024-07-31 | Outpatient (REF) | payer MEDICARE ==
[2024-07-31 17:23] LABS: INR 2.9; PROTHROMBIN TIME 30.3 SECONDS (12.5-14.5)
== END ==
LOC: M LAB REF 16:31
PROVIDERS: ATTEND Family Medicine
DX: Z79.01 Long term (current) use of anticoagulants (principal)

== ENCOUNTER → 2024-09-28 | Outpatient (REF) | payer MEDICARE ==
[~2024-09-28] MED LIST changes: +MAG-400T7 PO; +POTA-150 PO; +PRED5TA PO; +SERT50TA29 PO; +SPIR-10 PO; +TORS5TAB2 PO; +WARF-58 PO
[2024-09-28 17:08] LABS: INR 1.38
== END ==
LOC: M LAB REF 16:49
PROVIDERS: ATTEND Family Medicine
DX: Z79.01 Long term (current) use of anticoagulants (principal)

== ENCOUNTER 2024-10-04 14:56 | Outpatient (CLI) | payer MEDICARE ==
[~2024-10-04] VITALS: Ht 167.6 cm; Wt 88.6 kg
[~2024-10-04 14:56] MED LIST changes: +ALBUTEROL SULFATE 2.5 MG/0.5 ML INH CONCENTRATE NEB SOLN INH PRN; +EPINEPHrine INJ 1 MG/ML 1ML AMP IM PRN; +diphenhydrAMINE 50 MG/ML VIAL IV PRN
[2024-10-04] MEDS: FERRIC CARBOXYMALTOSE 750 MG (VIAL MATE) IN 100ML NS IV ONE (15:18)
== END 2024-10-04 15:45 ==
LOC: M INFU 14:56
PROVIDERS: ATTEND Family Medicine
DX: D50.9 Iron deficiency anemia, unspecified (principal); Z88.0 Allergy status to penicillin; Z88.1 Allergy status to other antibiotic agents
CPT/HCPCS: 96365; J1439

== ENCOUNTER → 2024-10-15 | Outpatient (REF) | payer MEDICARE ==
[~2024-10-15] MED LIST changes: -ALBUTEROL SULFATE 2.5 MG/0.5 ML INH CONCENTRATE NEB SOLN INH PRN; -EPINEPHrine INJ 1 MG/ML 1ML AMP IM PRN; -diphenhydrAMINE 50 MG/ML VIAL IV PRN
[2024-10-15 17:26] LABS: INR 2.14
== END ==
LOC: M LAB REF 16:52
PROVIDERS: ATTEND Family Medicine
DX: Z79.01 Long term (current) use of anticoagulants (principal)

== ENCOUNTER → 2024-10-29 | Outpatient (REF) | payer MEDICARE ==
[2024-10-29 17:41] LABS: INR 3.25
== END ==
LOC: M LAB REF 17:04
PROVIDERS: ATTEND Family Medicine
DX: Z79.01 Long term (current) use of anticoagulants (principal)

== ENCOUNTER → 2024-11-13 | Outpatient (REF) | payer MEDICARE ==
[~2024-11-13] MED LIST changes: -VITA500T17 PO; +VITA500T8 PO
[2024-11-13 13:29] LABS: INR 4.36
== END ==
LOC: M LAB REF 13:09
PROVIDERS: ATTEND Family Medicine
DX: Z79.01 Long term (current) use of anticoagulants (principal)

== ENCOUNTER → 2024-11-29 | Outpatient (REF) | payer MEDICARE ==
[2024-11-29 17:29] LABS: INR 1.54
== END ==
LOC: M LAB REF 17:06
PROVIDERS: ATTEND Family Medicine
DX: Z79.01 Long term (current) use of anticoagulants (principal)

== ENCOUNTER → 2024-12-18 | Outpatient (REF) | payer MEDICARE ==
[2024-12-18 17:15] LABS: INR 1.94
== END ==
LOC: M SFHCPLAZ 16:52
PROVIDERS: ATTEND Family Medicine
DX: Z79.01 Long term (current) use of anticoagulants (principal)

== ENCOUNTER → 2025-01-02 | Outpatient (REF) | payer MEDICARE ==
[2025-01-02 14:33] LABS: INR 2.11
== END ==
LOC: M LAB REF 14:16
PROVIDERS: ATTEND Family Medicine
DX: Z79.01 Long term (current) use of anticoagulants (principal)

== ENCOUNTER → 2025-01-21 | Outpatient (REF) | payer MEDICARE ==
[2025-01-21 17:15] LABS: BASO # 0.1 10^3/uL (0.0-0.2); BASO % 1.1 % (0.0-1.0); EOS # 0.2 10^3/uL (0.0-0.5); EOS % 3.0 % (0.0-3.0); LYMPH # 1.5 10^3/uL (1.5-5.0); LYMPH % 19.7 % (24.0-44.0); MONO # 0.6 10^3/uL (0.0-0.8); MONO % 7.5 % (2.0-8.0); NEUTROPHILS # 5.1 10^3/uL (1.5-8.5); NEUTROPHILS % 68.3 % (36.0-66.0); PLATELET COUNT, AUTOMATED 191 10^3/uL (150-450)
[2025-01-21 17:29] LABS: C REACTIVE PROTEIN QUANTITATIV 0.55 MG/DL (<1.0); IRON (FE) 52.0 UG/DL (50-170)
[2025-01-21 17:30] LABS: ALT/SGPT 18.0 U/L (7.0-40); AST/SGOT 36.0 U/L (<34); CALCIUM LEVEL 8.8 MG/DL (8.3-10.6); CARBON DIOXIDE LEVEL 30.0 MMOL/L (20-31); CHLORIDE LEVEL 103.0 MMOL/L (98-107); CHOLESTEROL LEVEL 153.0 MG/DL (<200); CHOLESTEROL RISK RATIO 3.04 (<5); CREATININE FOR GFR 0.85 MG/DL (0.55-1.30); GLOMERULAR FILTRATION RATE 67.9 (>32); LDL CHOLESTEROL 81.9 MG/DL (<100); MAGNESIUM LEVEL 1.9 MG/DL (1.8-2.4); NON-HDL-C 102.7 MG/DL; PERCENT SATURATION 25.9 % (13.2-45.0); POTASSIUM SERUM 3.7 MMOL/L (3.5-5.1); PTH INTACT 45.1 PG/ML (18.5-88.0); SODIUM LEVEL 142.0 MMOL/L (136-145); TRIGLYCERIDES LEVEL 104.0 MG/DL (<150)
[2025-01-21 17:31] LABS: FREE T4 1.77 NG/DL (0.89-1.76); TOTAL 25(OH) VITAMIN D 91.5 NG/ML (20.0-100.0)
[2025-01-21 17:50] LABS: INR 1.67
[2025-01-21 17:51] LABS: ESTIMATED AVERAGE GLUCOSE 126.0 MG/DL (60-110)
[2025-01-23 07:52] LABS: PROTEIN, TOTAL SO 6.5 g/dL (6.1-8.1)
== END ==
LOC: M LAB REF 16:51
PROVIDERS: ATTEND Family Medicine
DX: M06.9 Rheumatoid arthritis, unspecified (principal); E55.9 Vitamin D deficiency, unspecified; I50.32 Chronic diastolic (congestive) heart failure; E03.9 Hypothyroidism, unspecified; E78.2 Mixed hyperlipidemia; D50.9 Iron deficiency anemia, unspecified; R73.01 Impaired fasting glucose; Z79.01 Long term (current) use of anticoagulants

== ENCOUNTER → 2025-02-22 | Outpatient (CLI) | payer MEDICARE | LOC: M RAD 16:34 | PROVIDERS: ATTEND Surgery Vascular Surgery | DX: I71.43 Infrarenal abdominal aortic aneurysm, without rupture (principal) ==